=== PATIENT | female | born 1960 | race Caucasian/White ===

== ENCOUNTER → 2018-09-29 09:50 | Outpatient (CLI) | payer OTHER, SELFPAY ==
[2018-09-29 10:23] LABS: Add Manual Diff / Slide Review NO; Basophils Percent Auto 0.7 % (0-2); Eosinophils Percent Auto 4.4 % (2-4); Hematocrit 33.2 % (36-46); Hemoglobin 11.1 g/dL (12.0-16.0); Mean Corpuscular HGB Conc 33.6 % (30-36); Mean Corpuscular Hemoglobin 31.8 PG (26-34); Mean Corpuscular Volume 94.5 fL (80-100); Monocytes Percent Auto 5.4 % (3-14); Neutrophils Absolute Auto 4300 /uL (3000-5900); Neutrophils Percent Auto 77.5 % (50-75); Platelet Count 174 X10^3/uL (150-400); Red Blood Cell Count 3.51 X10^6/uL (4.0-5.2); Red Cell Distribution Width 16.8 % (11.6-14.8); White Blood Cell Count 5.6 X10^3/uL (4.5-11.0)
[2018-09-29 10:37] LABS: Alanine Aminotransferase 27 IU/L (9-52); Albumin 3.7 g/dL (3.5-5.0); Albumin Globulin Ratio 1.7 (1.0-2.8); Alkaline Phosphatase 76 U/L (38-126); Aspartate Aminotransferase 24 IU/L (14-36); BUN Creatinine Ratio 11.4 (6-22); Bilirubin Total 0.2 mg/dL (0.2-1.3); Blood Urea Nitrogen 8 mg/dL (7-17); Calcium 8.5 mg/dL (8.4-10.2); Carbon Dioxide 27 mmol/L (22-32); Chloride 105 mmol/L (98-107); Estimated Glomerular Filt Rate > 60.0 mL/min (>60); Globulin 2.2 g/dL (1.7-4.1); Glucose 76 mg/dL (80-110); HEMOLYSIS < 15 (0-50); Sodium 144 mmol/L (137-145); Total Protein 5.9 g/dL (6.3-8.2)
--- NOTE | 2018-09-29 16:12 | PC.NURSE ---
stable labs noted, provider visit on 10/20
== END ==
PROVIDERS: PCP Family Medicine; Visit Provider Internal Medicine Hematology & Oncology
DX: C92.10 Chronic myeloid leukemia, BCR/ABL-positive, not having achieved remission (principal)
CPT/HCPCS: 36415; 80053; 81206; 85025

== ENCOUNTER → 2018-11-04 12:50 | Outpatient (CLI) | payer OTHER, SELFPAY ==
[2018-11-04 13:29] LABS: Add Manual Diff / Slide Review NO; Basophils Percent Auto 0.8 % (0-2); Eosinophils Percent Auto 2.5 % (2-4); Hematocrit 32.4 % (36-46); Hemoglobin 10.8 g/dL (12.0-16.0); Lymphocytes Percent Auto 15.6 % (25-40); Mean Corpuscular HGB Conc 33.2 % (30-36); Mean Corpuscular Hemoglobin 31.9 PG (26-34); Mean Corpuscular Volume 96.1 fL (80-100); Neutrophils Absolute Auto 4200 /uL (1500-7000); Neutrophils Percent Auto 75.1 % (50-75); Platelet Count 183 X10^3/uL (150-400); Red Blood Cell Count 3.37 X10^6/uL (4.0-5.2); Red Cell Distribution Width 15.3 % (11.6-14.8); White Blood Cell Count 5.6 X10^3/uL (4.5-11.0)
[2018-11-04 13:41] LABS: Alanine Aminotransferase 28 IU/L (9-52); Albumin 3.9 g/dL (3.5-5.0); Albumin Globulin Ratio 1.7 (1.0-2.8); Alkaline Phosphatase 80 U/L (38-126); Aspartate Aminotransferase 27 IU/L (14-36); BUN Creatinine Ratio 14.3 (6-22); Bilirubin Total 0.2 mg/dL (0.2-1.3); Blood Urea Nitrogen 10 mg/dL (7-17); Calcium 8.6 mg/dL (8.4-10.2); Carbon Dioxide 28 mmol/L (22-32); Chloride 105 mmol/L (98-107); Estimated Glomerular Filt Rate > 60.0 mL/min (>60); Globulin 2.3 g/dL (1.7-4.1); Glucose 103 mg/dL (80-110); HEMOLYSIS < 15 (0-50); Potassium 3.9 mmol/L (3.4-5.1); Sodium 141 mmol/L (137-145); Total Protein 6.2 g/dL (6.3-8.2)
--- NOTE | 2018-11-30 09:45 | PC.NURSE ---
Received call from pt on 11/28 requesting refill on her Imatinib. This refill auth was obtained on 11/30. Tried calling this refill auth into [facility] at [phone]. Was informed it wasn't a refill auth they needed (as pt still has 4 months left of refills on last script), but that a prior auth was needed as the previous auth had . Called prior auth department at [phone] and asset protection representative informed me a prior auth request was submitted on 11/29 and takes anywhere from 24-72 hours. Called pt to let her know where we were at in the process. Left voice message with the above info.
== END ==
PROVIDERS: PCP Family Medicine; Visit Provider Internal Medicine Hematology & Oncology
DX: C92.10 Chronic myeloid leukemia, BCR/ABL-positive, not having achieved remission (principal)
CPT/HCPCS: 36415; 80053; 81206; 85025

== ENCOUNTER → 2019-01-09 15:04 | Outpatient (CLI) | payer OTHER, SELFPAY ==
[2019-01-09 15:28] LABS: Add Manual Diff / Slide Review NO; Basophils Absolute Auto 0 /uL (0-100); Basophils Percent Auto 0.7 % (0-2); Eosinophils Absolute Auto 300 /uL (0-450); Hematocrit 33.5 % (36-46); Hemoglobin 11.3 g/dL (12.0-16.0); Lymphocytes Absolute Auto 800 /uL (1100-4500); Lymphocytes Percent Auto 11.7 % (25-40); Mean Corpuscular HGB Conc 33.6 % (30-36); Mean Corpuscular Volume 95.3 fL (80-100); Monocytes Absolute Auto 400 /uL (0-900); Monocytes Percent Auto 6.2 % (3-14); Neutrophils Absolute Auto 5200 /uL (1500-7000); Neutrophils Percent Auto 77.4 % (50-75); Platelet Count 172 X10^3/uL (150-400); Red Blood Cell Count 3.52 X10^6/uL (4.0-5.2); Red Cell Distribution Width 14.9 % (11.6-14.8); White Blood Cell Count 6.7 X10^3/uL (4.5-11.0)
[2019-01-09 15:47] LABS: Alanine Aminotransferase 29 IU/L (9-52); Albumin 4.3 g/dL (3.5-5.0); Albumin Globulin Ratio 1.9 (1.0-2.8); Alkaline Phosphatase 93 U/L (38-126); Aspartate Aminotransferase 30 IU/L (14-36); Bilirubin Total 0.2 mg/dL (0.2-1.3); Blood Urea Nitrogen 16 mg/dL (7-17); Carbon Dioxide 29 mmol/L (22-32); Chloride 103 mmol/L (98-107); Estimated Glomerular Filt Rate > 60.0 mL/min (>60); Globulin 2.3 g/dL (1.7-4.1); Glucose 91 mg/dL (80-110); HEMOLYSIS < 15 (0-50); Potassium 4.5 mmol/L (3.4-5.1); Sodium 140 mmol/L (137-145); Total Protein 6.6 g/dL (6.3-8.2)
== END ==
PROVIDERS: PCP Family Medicine; Visit Provider Internal Medicine Hematology & Oncology
DX: C92.10 Chronic myeloid leukemia, BCR/ABL-positive, not having achieved remission (principal)
CPT/HCPCS: 36415; 80053; 85025; 93005

== ENCOUNTER → 2019-02-09 16:13 | Outpatient (CLI) | payer OTHER, SELFPAY | PROVIDERS: Family Provider Family Medicine; PCP Family Medicine; Visit Provider Internal Medicine Hematology & Oncology | DX: C92.10 Chronic myeloid leukemia, BCR/ABL-positive, not having achieved remission (principal) | CPT/HCPCS: 93005; 93010 ==

== ENCOUNTER → 2019-04-03 13:37 | Outpatient (CLI) | payer OTHER, SELFPAY ==
[2019-04-03 14:01] LABS: Add Manual Diff / Slide Review NO; Basophils Absolute Auto 100 /uL (0-100); Basophils Percent Auto 1.3 % (0-2); Eosinophils Absolute Auto 600 /uL (0-450); Eosinophils Percent Auto 11.1 % (2-4); Hematocrit 33.4 % (36-46); Hemoglobin 11.2 g/dL (12.0-16.0); Lymphocytes Absolute Auto 1300 /uL (1100-4500); Lymphocytes Percent Auto 22.6 % (25-40); Mean Corpuscular HGB Conc 33.6 % (30-36); Mean Corpuscular Hemoglobin 30.6 PG (26-34); Mean Corpuscular Volume 91.2 fL (80-100); Monocytes Absolute Auto 500 /uL (0-900); Monocytes Percent Auto 8.2 % (3-14); Neutrophils Absolute Auto 3300 /uL (1500-7000); Neutrophils Percent Auto 56.8 % (50-75); Platelet Count 158 X10^3/uL (150-400); Red Blood Cell Count 3.66 X10^6/uL (4.0-5.2); Red Cell Distribution Width 14.6 % (11.6-14.8); White Blood Cell Count 5.8 X10^3/uL (4.5-11.0)
[2019-04-03 14:11] LABS: Alanine Aminotransferase 24 IU/L (9-52); Albumin 4.3 g/dL (3.5-5.0); Albumin Globulin Ratio 1.7 (1.0-2.8); Alkaline Phosphatase 79 U/L (38-126); Aspartate Aminotransferase 32 IU/L (14-36); Bilirubin Total 0.3 mg/dL (0.2-1.3); Blood Urea Nitrogen 14 mg/dL (7-17); Calcium 9.3 mg/dL (8.4-10.2); Carbon Dioxide 30 mmol/L (22-32); Chloride 104 mmol/L (98-107); Estimated Glomerular Filt Rate > 60.0 mL/min (>60); Globulin 2.6 g/dL (1.7-4.1); Glucose 98 mg/dL (80-110); HEMOLYSIS < 15 (0-50); Potassium 4.5 mmol/L (3.4-5.1); Sodium 139 mmol/L (137-145); Total Protein 6.9 g/dL (6.3-8.2)
== END ==
PROVIDERS: PCP Family Medicine; Visit Provider Internal Medicine Hematology & Oncology
DX: C92.10 Chronic myeloid leukemia, BCR/ABL-positive, not having achieved remission (principal)
CPT/HCPCS: 36415; 80053; 81207; 85025

== ENCOUNTER → 2019-04-24 14:20 | Oncology outpatient (ONC) | payer OTHER, SELFPAY ==
--- NOTE | 2018-08-15 15:15 | ONC.NAV ---
Description: New Pt Intro Activity: Met with pt to introduce myself as the Pt Primo/NURSES SUPERINTENDENT, offer services card, and develop initial rapport. Pt indicated a (3) on her distress form, expressing sadness, depression, and interested in support group information. Discussed briefly what available support we have here, as well as the [facility] Support group. Discussed a plan for this NURSES SUPERINTENDENT to complile a list of disease-related online support group and resource information. Will either send this to patient or give to her at her next visit. No further needs identified at this tiime.
--- NOTE | 2018-08-15 15:19 | P.CONONC_ITS ---
History of Present Illness - Data of Consult Consult date: 08/15/18 Requesting Physician: Val Martinez DO Primary Care Provider: Val Martinez DO - Consult Narrative Reason for consult: CML Narrative: Nena Bloom is a 58 year old female with CML. She has been followed by Dr. Katie Mejia at [facility]. Patient recently decided to move her care to [facility] due to transportation convenience. She presented with asymptomatic leukocytosis detected on routine CBC. Bone marrow aspiration and biopsy on 12/22/2017 showed chronic myeloid leukemia, BCR-ABL1 positive; chronic phase. No increase in blasts. Reticulin stain shows patchy mild reticulin fibrosis. She was then started on Gleevec 400 mg once a day. In the beginning, patient developed tumor lysis syndrome and had to use rasburicase. After about 6 months of treatment with Gleevec 400 mg once a day, the dosage was increased to 800 mg once a day. According to patient, the test at that time showed that the patient did not achieve the milestone. Patient reported that she feels a little bit more tired and sleeps more than used to. Patient reports some headache which she attributed to her chronic migraine. Patient has some muscle aches and dry eyes and dry skin. Patient noticed some non-itching rash on the face but today it is barely visible. The patient has a okay appetite. Patient has had weight gain of 15 lbs after start on Gleevec, but now after the dosage increase, the weight begins to drop. She denies any shortness of breath or chest pain, denies any nausea or vomiting. She said she did have nausea in the beginning when she was started on Gleevec; now it has resolved. She denies any fever or chills. She denies any sore throat. Patient reported right-sided submandibular tenderness. Patient reports pain?: Yes - Pain Details Pain location: Headache, has history of migraine Pain Scale Used: mild Pain Frequency: Intermittent Home Medications and Allergies Home Medications Medication Instructions Recorded Confirmed Type cromolyn 1 - 2 drp EYE-BOTH TID 08/15/18 08/15/18 History duloxetine 60 mg PO DAILY 08/15/18 08/15/18 History fluticasone 2 inh INHALATION BID 08/15/18 08/15/18 History glucosamine sulfate [Glucosamine] 500 mg PO TID 08/15/18 08/15/18 History imatinib [Gleevec] 400 mg PO DAILY 08/15/18 08/15/18 History levothyroxine 75 mcg PO DAILY 08/15/18 08/15/18 History loratadine 10 mg PO DAILY 08/15/18 08/15/18 History melatonin 3 mg PO BEDTIME PRN 08/15/18 08/15/18 History naproxen sodium [Aleve] 220 mg PO BID PRN 08/15/18 08/15/18 History ramipril [Altace] 10 mg PO DAILY 08/15/18 08/15/18 History zolmitriptan [Zomig] 5 mg PO Q2-4H PRN 08/15/18 08/15/18 History Allergies Allergy/AdvReac Type Severity Reaction Status Date / Time allopurinol Allergy Intermediate Hives Verified 08/15/18 15:31 acetaminophen [From Vicodin] Allergy Mild Hives Verified 08/15/18 15:31 codeine Allergy Mild Hives Verified 08/15/18 15:31 doxycycline Allergy Mild Hives Verified 08/15/18 15:31 hydrocodone [From Vicodin] Allergy Mild Hives Verified 08/15/18 15:31 Medical History - Medical, Surgical, Family History Medical History: Medical History (Last Updated 08/15/18 @ 15:24 by Alma Ruff MD) Hypertension Hypothyroidism Migraine Surgical History: Surgical History (Last Updated 08/15/18 @ 15:21 by Alma Ruff MD) History of augmentation of both breasts History of tonsillectomy Family History: Family History (Last Updated 08/15/18 @ 15:23 by Alma Ruff MD) Sister Bone cancer, Onset Age: 47 Mother Goiter - Social History Smoking Status: Never smoker Substance Use Type: does not use Alcohol Intake: never Housing: house Household Members: spouse Current Occupational Status: retired Review of Systems All systems PM: reviewed and no additional remarkable complaints except as stated Exam Vital signs: Temperature 98.3?, heart rate 84, respiratory rate 18, blood pressure 141/85, saturation 100% on room air, weight 87.4 kilos, height 167.8 cm. ECOG 1 Narrative: Constitutional: Well developed, well nourished, not in any acute respiratory distress, average body habitus, well groomed, pleasant and cooperative. Accompanied by her [id number]. HEENT: Normocephalic atraumatic. Extraocular muscle movement intact. Pupils are round, equal and reactive to light and accommodations. Anicteric sclera. No hearing difficulty; Oral mucus membrane moist and without ulcers. Neck: Supple, symmetrical, and tracheal midline; No palpable thyromegaly and no palpable lymph nodes. Respiratory: No use of accessory muscles. Clear to auscultation, and no wheezes or rales or rubs. Cardiovascular: Regular rate and rhythm, S1 and S2 normal, no murmurs gallops or rubs. No JVD. No pitting edema of lower extremities. Abdomen: Soft, nontender, non-distended, bowel sounds normal, no palpable organomegaly, no hernia, no palpable masses. Lower extremities: No palpable pedal edema. Lymphatic: no palpable lymph nodes in the neck, axillae, or groins. Musculoskeletal: normal gait and station, no clubbing, no cyanosis, no pitting edema. Skin: no rashes, no ulcers, no petechiae Neurological: Awake and alert and oriented x3. CN II-XII grossly intact. No focal motor or sensory deficit. Psychiatric: Good judgment, good insight, normal affect, normal thought process , cooperative, no depression, no anxiety. Results - Labs None from today for review Assessment and Plan (1) CML (chronic myelocytic leukemia) I talked with the patient that clinically I think she has been doing well with the increased dosage of Gleevec 800 mg once daily. And the 1st step is to repeat the peripheral blood quantitative PCR test for BCR ABL1 transcript level. Based on the results we will decide if we can continue the treatment without any changes, or we switch to second-generation tyrosine kinase inhibitors or we need to proceed with more testing including tyrosine kinase domain mutational analysis. - Time Spent with Patient Plan in Sumary: 1. WBC/D, CMP, uric acid, LDH 2. BCR/ABL1 qPCR (IS) at [facility] 3. RTC MD in one week to discuss if mutation analysis is needed and if need switch TKI
--- NOTE | 2018-08-15 15:55 | ONC.SCHED ---
BCR/CX1QRJQ(IS)CPTS 86037,39371 DO NOT REQUIRE PRECERTIFICATION PER [employer] ONLINE
[2018-08-15 16:46] VITALS: BP 141/85; PULSE 84; RESP 18; TEMP 36.8; O2SAT 100
[2018-08-16 11:48] LABS: Add Manual Diff / Slide Review NO; Basophils Percent Auto 0.7 % (0-2); Eosinophils Percent Auto 6.9 % (2-4); Hematocrit 34.2 % (36-46); Hemoglobin 11.4 g/dL (12.0-16.0); Mean Corpuscular HGB Conc 33.3 % (30-36); Mean Corpuscular Hemoglobin 30.7 PG (26-34); Mean Corpuscular Volume 92.2 fL (80-100); Monocytes Percent Auto 7.4 % (3-14); Neutrophils Absolute Auto 3800 /uL (3000-5900); Platelet Count 177 X10^3/uL (150-400); Red Blood Cell Count 3.71 X10^6/uL (4.0-5.2); Red Cell Distribution Width 18.4 % (11.6-14.8); White Blood Cell Count 5.4 X10^3/uL (4.5-11.0)
[2018-08-16 16:52] LABS: Alanine Aminotransferase 30 IU/L (9-52); Albumin Globulin Ratio 1.7 (1.0-2.8); Alkaline Phosphatase 94 U/L (38-126); Aspartate Aminotransferase 32 IU/L (14-36); BUN Creatinine Ratio 12.5 (6-22); Bilirubin Total 0.3 mg/dL (0.2-1.3); Blood Urea Nitrogen 10 mg/dL (7-17); Calcium 8.8 mg/dL (8.4-10.2); Carbon Dioxide 31 mmol/L (22-32); Chloride 105 mmol/L (98-107); Estimated Glomerular Filt Rate > 60.0 mL/min (>60); Globulin 2.3 g/dL (1.7-4.1); Glucose 85 mg/dL (80-110); HEMOLYSIS < 15 (0-50); Lactate Dehydrogenase 542 U/L (313-618); Sodium 144 mmol/L (137-145); Total Protein 6.3 g/dL (6.3-8.2); Uric Acid 3.7 mg/dL (2.5-6.2)
[2018-08-19 08:19] LABS: Miscellaneous to Univ of WA SEE SEPERATE REPORT
--- NOTE | 2018-08-22 16:58 | ONC.PN ---
PN -Subjective Interval history: Chief Complaint: 58 year old with CML now on Geevec 800 mg daily History of Present Illness: Nena Bloom is a 58 year old female with CML. She presented with asymptomatic leukocytosis detected on routine CBC. Bone marrow aspiration and biopsy on 12/22/2017 showed chronic myeloid leukemia, BCR-ABL1 positive; chronic phase. No increase in blasts. Reticulin stain shows patchy mild reticulin fibrosis. She was then started on Gleevec 400 mg once a day. In the beginning, patient developed tumor lysis syndrome and had to use rasburicase. After about 6 months of treatment with Gleevec 400 mg once a day, BCR/ABL1 transcript level was 21.446% (IS) on 06/15/2018. Therefore, the dosage of Gleevac was increased to 800 mg once a day. She was initially followed by Dr. Mejia. Due to travel convenience, she decided to come to [facility] for continued care. Interim Events: Since her previous visit, there has been no new signs or symptoms. Patient continues to have some fatigue. She is taking Gleevec 800 mg once a day and seems to be tolerating fairly well. She presents today for review of the testing results of bcr/able 1 transcript level. - Patient Self-Reported Symptoms SR Constitution: Fatigue/Malaise SR ears, nose, mouth, throat issues: Swollen glands SR Cardiovascular issues: Dizzy/lightheaded SR Skin issues: Dry skin SR Musculoskeletal issues: Muscle pain or cramps, Back or neck pain SR Neuro issues: Headache, Lightheaded/dizzy SR Hematologic issues: Bleeding/bruising, Swollen lymph nodes - Additional ROS All systems PM: reviewed and no additional remarkable complaints except as stated Home Medications and Allergies Home Medications Medication Instructions Recorded Confirmed Type duloxetine 60 mg PO DAILY 08/15/18 08/15/18 History fluticasone 2 inh INHALATION DAILY 08/15/18 08/22/18 History glucosamine sulfate [Glucosamine] 500 mg PO TID 08/15/18 08/15/18 History levothyroxine 75 mcg PO DAILY 08/15/18 08/15/18 History loratadine 10 mg PO DAILY 08/15/18 08/15/18 History naproxen sodium [Aleve] 220 mg PO BID PRN 08/15/18 08/15/18 History ramipril [Altace] 10 mg PO DAILY 08/15/18 08/15/18 History zolmitriptan [Zomig] 5 mg PO PRN 08/15/18 History imatinib 800 mg PO DAILY 08/22/18 08/22/18 History melatonin 5 mg PO PRN PRN 08/22/18 08/22/18 History Allergies Allergy/AdvReac Type Severity Reaction Status Date / Time allopurinol Allergy Intermediate Hives Verified 08/15/18 15:31 acetaminophen [From Vicodin] Allergy Mild Hives Verified 08/15/18 15:31 codeine Allergy Mild Hives Verified 08/15/18 15:31 doxycycline Allergy Mild Hives Verified 08/15/18 15:31 hydrocodone [From Vicodin] Allergy Mild Hives Verified 08/15/18 15:31 Exam Vital signs: Temp 98.3 F 08/15/18 16:46 Pulse 84 08/15/18 16:46 Resp 18 08/15/18 16:46 BP 141/85 H 08/15/18 16:46 Pulse Ox 100 08/15/18 16:46 ECOG 1 Narrative: Constitutional: Well developed, well nourished, not in any acute respiratory distress, average body habitus, well groomed, pleasant and cooperative. Accompanied by her . HEENT: Normocephalic atraumatic. Extraocular muscle movement intact. Pupils are round, equal and reactive to light and accommodations. Anicteric sclera. No hearing difficulty; Oral mucus membrane moist and without ulcers. Neck: Supple, symmetrical, and tracheal midline; No palpable thyromegaly and no palpable lymph nodes. Respiratory: No use of accessory muscles. Clear to auscultation, and no wheezes or rales or rubs. Cardiovascular: Regular rate and rhythm, S1 and S2 normal, no murmurs gallops or rubs. No JVD. No pitting edema of lower extremities. Abdomen: Soft, nontender, non-distended, bowel sounds normal, no palpable organomegaly, no hernia, no palpable masses. Lower extremities: No palpable pedal edema. Lymphatic: no palpable lymph nodes in the neck, axillae, or groins. Musculoskeletal: normal gait and station, no clubbing, no cyanosis, no pitting edema. Skin: no rashes, no ulcers, no petechiae Neurological: Awake and alert and oriented x3. CN II-XII grossly intact. No focal motor or sensory deficit. Psychiatric: Good judgment, good insight, normal affect, normal thought process, cooperative, no depression, no anxiety Results - Labs WBC 5.4 X10^3/uL (4.5-11.0) 08/16/18 11:20 RBC 3.71 X10^6/uL (4.0-5.2) L 08/16/18 11:20 Hgb 11.4 g/dL (12.0-16.0) L 08/16/18 11:20 Hct 34.2 % (36-46) L 08/16/18 11:20 MCV 92.2 fL (80-100) 08/16/18 11:20 MCH 30.7 PG (26-34) 08/16/18 11:20 MCHC 33.3 % (30-36) 08/16/18 11:20 RDW 18.4 % (11.6-14.8) H 08/16/18 11:20 Plt Count 177 X10^3/uL (150-400) 08/16/18 11:20 Neut % (Auto) 70.0 % (50-75) 08/16/18 11:20 Lymph % (Auto) 15.0 % (25-40) L 08/16/18 11:20 [place] % (Auto) 7.4 % (3-14) 08/16/18 11:20 Eos % (Auto) 6.9 % (2-4) H 08/16/18 11:20 Baso % (Auto) 0.7 % (0-2) 08/16/18 11:20 Neut # (Auto) 3800 /uL (3391-8587) 08/16/18 11:20 Sodium 144 mmol/L (137-145) 08/16/18 11:20 Potassium 4.0 mmol/L (3.4-5.1) 08/16/18 11:20 Chloride 105 mmol/L (98-107) 08/16/18 11:20 Carbon Dioxide 31 mmol/L (22-32) 08/16/18 11:20 BUN 10 mg/dL (7-17) 08/16/18 11:20 Creatinine 0.80 mg/dL (0.52-1.04) 08/16/18 11:20 Estimated GFR > 60.0 mL/min (>60) 08/16/18 11:20 BUN/Creatinine Ratio 12.5 (6-22) 08/16/18 11:20 Glucose 85 mg/dL (80-110) 08/16/18 11:20 Uric Acid 3.7 mg/dL (2.5-6.2) 08/16/18 11:20 Calcium 8.8 mg/dL (8.4-10.2) 08/16/18 11:20 Total Bilirubin 0.3 mg/dL (0.2-1.3) 08/16/18 11:20 AST 32 IU/L (14-36) 08/16/18 11:20 ALT 30 IU/L (9-52) 08/16/18 11:20 Alkaline Phosphatase 94 U/L (38-126) 08/16/18 11:20 Lactate Dehydrogenase 542 U/L (313-618) 08/16/18 11:20 Total Protein 6.3 g/dL (6.3-8.2) 08/16/18 11:20 Albumin 4.0 g/dL (3.5-5.0) 08/16/18 11:20 Globulin 2.3 g/dL (1.7-4.1) 08/16/18 11:20 Albumin/Globulin Ratio 1.7 (1.0-2.8) 08/16/18 11:20 Ref Test (Refrig) See seperate report 08/16/18 11:20 08/16/2018 ([facility] [place]): Positive fro BCR/ABL p210 transcripts. The BCR/ABL to ABL ratio(%) is 2.10% Assessment and Plan (1) CML (chronic myelocytic leukemia) I explained to the patient about the results. Clearly it is not converted into international scale. Therefore it is very difficult to compare with her transcript level from June of 2018. I talked with the patient that I will send off a new sample to test for BCR able quantitatively at the same lab, that is, [facility]. I will have the patient come back in 1 week to review the results. If it is not reaching milestone, patient will need kinase domain mutational analysis and I will change the medication to dasatinib or nilotinib.
--- NOTE | 2018-09-02 12:52 | ONC.PN ---
PN -Subjective Interval history: Chief Complaint: 58 year old with CML now on Geevec 800 mg daily History of Present Illness: Nena Bloom is a 58 year old female with CML. She presented with asymptomatic leukocytosis detected on routine CBC in Nov 2017 with WBC 65590. Peripheral blood BCR-ABL1 by PCR showed transcript level of 100%. Bone marrow aspiration and biopsy on 12/22/2017 showed chronic myeloid leukemia, BCR-ABL1 positive; chronic phase. No increase in blasts. Reticulin stain shows patchy mild reticulin fibrosis. US showed no hepatosplenomegaly. Hepatitis panel was negative for hepatitis B and C. On Dec 30, 2017, she was then started on Gleevec 400 mg once a day. In the beginning, patient developed tumor lysis syndrome and had to use rasburicase. After about 6 months of treatment with Gleevec 400 mg once a day, BCR-ABL1 transcript level was 21.446% (IS) on 06/15/2018. Therefore, the dosage of Gleevec was increased to 800 mg once a day. She was initially followed by Dr. Mejia. Due to travel convenience, she decided to come to [email or web address] for continued care. Interim Events: She is not taking Gleevec at 800 mg once a day. Patient has tolerated the medications very well. Patient does not have any signs or symptoms of nausea or vomiting or diarrhea or constipation. Patient presents here today to review the laboratory monitoring the results of the BCR-ABL1. - Patient Self-Reported Symptoms SR Constitution: Fatigue/Malaise SR ears, nose, mouth, throat issues: Swollen glands SR Cardiovascular issues: Dizzy/lightheaded SR Skin issues: Dry skin SR Musculoskeletal issues: Muscle pain or cramps, Back or neck pain SR Neuro issues: Headache, Lightheaded/dizzy SR Hematologic issues: Bleeding/bruising, Swollen lymph nodes - Additional ROS All systems PM: reviewed and no additional remarkable complaints except as stated Home Medications and Allergies Home Medications Medication Instructions Recorded Confirmed Type duloxetine 60 mg PO DAILY 08/15/18 09/02/18 History fluticasone 2 inh INHALATION DAILY 08/15/18 09/02/18 History glucosamine sulfate [Glucosamine] 500 mg PO TID 08/15/18 09/02/18 History levothyroxine 75 mcg PO DAILY 08/15/18 09/02/18 History loratadine 10 mg PO DAILY 08/15/18 09/02/18 History naproxen sodium [Aleve] 220 mg PO BID PRN 08/15/18 09/02/18 History ramipril [Altace] 10 mg PO DAILY 08/15/18 09/02/18 History zolmitriptan 5 mg PO PRN PRN 08/15/18 09/02/18 History imatinib 800 mg PO DAILY 08/22/18 09/02/18 History melatonin 5 mg PO PRN PRN 08/22/18 09/02/18 History Allergies Allergy/AdvReac Type Severity Reaction Status Date / Time allopurinol Allergy Intermediate Hives Verified 08/15/18 15:31 acetaminophen [From Vicodin] Allergy Mild Hives Verified 08/15/18 15:31 codeine Allergy Mild Hives Verified 08/15/18 15:31 doxycycline Allergy Mild Hives Verified 08/15/18 15:31 hydrocodone [From Vicodin] Allergy Mild Hives Verified 08/15/18 15:31 Exam Vital signs: Last Vital Signs Temp 98.1 F 09/02/18 13:04 Pulse 81 09/02/18 13:04 Resp 16 09/02/18 13:04 BP 121/72 09/02/18 13:04 Pulse Ox 100 09/02/18 13:04 ECOG 1 Narrative: Constitutional: Well developed, well nourished, not in any acute respiratory distress, average body habitus, well groomed, pleasant and cooperative. Accompanied by her . HEENT: Normocephalic atraumatic. Extraocular muscle movement intact. Pupils are round, equal and reactive to light and accommodations. Anicteric sclera. No hearing difficulty; Oral mucus membrane moist and without ulcers. Neck: Supple, symmetrical, and tracheal midline; No palpable thyromegaly and no palpable lymph nodes. Respiratory: No use of accessory muscles. Clear to auscultation, and no wheezes or rales or rubs. Cardiovascular: Regular rate and rhythm, S1 and S2 normal, no murmurs gallops or rubs. No JVD. No pitting edema of lower extremities. Abdomen: Soft, nontender, non-distended, bowel sounds normal, no palpable organomegaly, no hernia, no palpable masses. Lower extremities: No palpable pedal edema. Lymphatic: no palpable lymph nodes in the neck, axillae, or groins. Musculoskeletal: normal gait and station, no clubbing, no cyanosis, no pitting edema. Skin: no rashes, no ulcers, no petechiae Neurological: Awake and alert and oriented x3. CN II-XII grossly intact. No focal motor or sensory deficit. Psychiatric: Good judgment, good insight, normal affect, normal thought process, cooperative, no depression, no anxiety Results - Labs WBC 5.4 X10^3/uL (4.5-11.0) 08/16/18 11:20 RBC 3.71 X10^6/uL (4.0-5.2) L 08/16/18 11:20 Hgb 11.4 g/dL (12.0-16.0) L 08/16/18 11:20 Hct 34.2 % (36-46) L 08/16/18 11:20 MCV 92.2 fL (80-100) 08/16/18 11:20 MCH 30.7 PG (26-34) 08/16/18 11:20 MCHC 33.3 % (30-36) 08/16/18 11:20 RDW 18.4 % (11.6-14.8) H 08/16/18 11:20 Plt Count 177 X10^3/uL (150-400) 08/16/18 11:20 Neut % (Auto) 70.0 % (50-75) 08/16/18 11:20 Lymph % (Auto) 15.0 % (25-40) L 08/16/18 11:20 [place] % (Auto) 7.4 % (3-14) 08/16/18 11:20 Eos % (Auto) 6.9 % (2-4) H 08/16/18 11:20 Baso % (Auto) 0.7 % (0-2) 08/16/18 11:20 Neut # (Auto) 3800 /uL (6963-7477) 08/16/18 11:20 Sodium 144 mmol/L (137-145) 08/16/18 11:20 Potassium 4.0 mmol/L (3.4-5.1) 08/16/18 11:20 Chloride 105 mmol/L (98-107) 08/16/18 11:20 Carbon Dioxide 31 mmol/L (22-32) 08/16/18 11:20 BUN 10 mg/dL (7-17) 08/16/18 11:20 Creatinine 0.80 mg/dL (0.52-1.04) 08/16/18 11:20 Estimated GFR > 60.0 mL/min (>60) 08/16/18 11:20 BUN/Creatinine Ratio 12.5 (6-22) 08/16/18 11:20 Glucose 85 mg/dL (80-110) 08/16/18 11:20 Uric Acid 3.7 mg/dL (2.5-6.2) 08/16/18 11:20 Calcium 8.8 mg/dL (8.4-10.2) 08/16/18 11:20 Total Bilirubin 0.3 mg/dL (0.2-1.3) 08/16/18 11:20 AST 32 IU/L (14-36) 08/16/18 11:20 ALT 30 IU/L (9-52) 08/16/18 11:20 Alkaline Phosphatase 94 U/L (38-126) 08/16/18 11:20 Lactate Dehydrogenase 542 U/L (313-618) 08/16/18 11:20 Total Protein 6.3 g/dL (6.3-8.2) 08/16/18 11:20 Albumin 4.0 g/dL (3.5-5.0) 08/16/18 11:20 Globulin 2.3 g/dL (1.7-4.1) 08/16/18 11:20 Albumin/Globulin Ratio 1.7 (1.0-2.8) 08/16/18 11:20 Ref Test (Refrig) 08/23/18 15:22 BCR-ABL1/abl1, %(IS) 11/17/2017 100 06/15/2018 21.446 08/23/2018 0.91 Assessment and Plan (1) CML (chronic myelocytic leukemia) I reviewed the BCR-ABL1 transcript level obtained on August 23, 2018. It was 0.91% international scale. Patient said that she was started on Gleevec in December of 2017. At 6 months, due to persistent elevated BCR-Abl1 transcript level, the dosage of Gleevec was increased to 800 mg once a day. Clinically patient has tolerated extremely well. I talked with her that I will monitor her BCR-ABL1 transcript level monthly instead of every 3 months. If the transcript level is increasing or does not reach major molecular response by 12 months ( less than 0.1%), I will switch the medication to second-generation tyrosine kinase inhibitor with mutational analysis. Plan: 1. Continue Gleevec 800 mg daily 2. CBC, CMP and BCR-ABL1/ABL1 qPCR ([facility]) in one month 3. RTC after the blood test is available for review.
--- NOTE | 2018-09-02 12:57 | P.PNONC_ITS ---
PN -Subjective Interval history: Chief Complaint: 58 year old with CML now on Geevec 800 mg daily History of Present Illness: Nena Bloom is a 58 year old female with CML. She presented with asymptomatic leukocytosis detected on routine CBC in Nov 2017 with WBC 63972. Peripheral blood BCR-ABL1 by PCR showed transcript level of 100%. Bone marrow aspiration and biopsy on 12/22/2017 showed chronic myeloid leukemia, BCR-ABL1 positive; chronic phase. No increase in blasts. Reticulin stain shows patchy mild reticulin fibrosis. US showed no hepatosplenomegaly. Hepatitis panel was negative for hepatitis B and C. On Dec 30, 2017, she was then started on Gleevec 400 mg once a day. In the beginning, patient developed tumor lysis syndrome and had to use rasburicase. After about 6 months of treatment with Gleevec 400 mg once a day, BCR-ABL1 transcript level was 21.446% (IS) on 06/15/2018. Therefore , the dosage of Gleevec was increased to 800 mg once a day. She was initially followed by Dr. Mejia. Due to travel convenience, she decided to come to [facility] for continued care. Interim Events: She is not taking Gleevec at 800 mg once a day. Patient has tolerated the medications very well. Patient does not have any signs or symptoms of nausea or vomiting or diarrhea or constipation. Patient presents here today to review the laboratory monitoring the results of the BCR-ABL1. - Patient Self-Reported Symptoms SR Constitution: Fatigue/Malaise SR ears, nose, mouth, throat issues: Swollen glands SR Cardiovascular issues: Dizzy/lightheaded SR Skin issues: Dry skin SR Musculoskeletal issues: Muscle pain or cramps, Back or neck pain SR Neuro issues: Headache, Lightheaded/dizzy SR Hematologic issues: Bleeding/bruising, Swollen lymph nodes - Additional ROS All systems PM: reviewed and no additional remarkable complaints except as stated Home Medications and Allergies Home Medications Medication Instructions Recorded Confirmed Type duloxetine 60 mg PO DAILY 08/15/18 09/02/18 History fluticasone 2 inh INHALATION DAILY 08/15/18 09/02/18 History glucosamine sulfate [Glucosamine] 500 mg PO TID 08/15/18 09/02/18 History levothyroxine 75 mcg PO DAILY 08/15/18 09/02/18 History loratadine 10 mg PO DAILY 08/15/18 09/02/18 History naproxen sodium [Aleve] 220 mg PO BID PRN 08/15/18 09/02/18 History ramipril [Altace] 10 mg PO DAILY 08/15/18 09/02/18 History zolmitriptan 5 mg PO PRN PRN 08/15/18 09/02/18 History imatinib 800 mg PO DAILY 08/22/18 09/02/18 History melatonin 5 mg PO PRN PRN 08/22/18 09/02/18 History Allergies Allergy/AdvReac Type Severity Reaction Status Date / Time allopurinol Allergy Intermediate Hives Verified 08/15/18 15:31 acetaminophen [From Vicodin] Allergy Mild Hives Verified 08/15/18 15:31 codeine Allergy Mild Hives Verified 08/15/18 15:31 doxycycline Allergy Mild Hives Verified 08/15/18 15:31 hydrocodone [From Vicodin] Allergy Mild Hives Verified 08/15/18 15:31 Exam Vital signs: Last Vital Signs Temp 98.1 F 09/02/18 13:04 Pulse 81 09/02/18 13:04 Resp 16 09/02/18 13:04 BP 121/72 09/02/18 13:04 Pulse Ox 100 09/02/18 13:04 ECOG 1 Narrative: Constitutional: Well developed, well nourished, not in any acute respiratory distress, average body habitus, well groomed, pleasant and cooperative. Accompanied by her . HEENT: Normocephalic atraumatic. Extraocular muscle movement intact. Pupils are round, equal and reactive to light and accommodations. Anicteric sclera. No hearing difficulty; Oral mucus membrane moist and without ulcers. Neck: Supple, symmetrical, and tracheal midline; No palpable thyromegaly and no palpable lymph nodes. Respiratory: No use of accessory muscles. Clear to auscultation, and no wheezes or rales or rubs. Cardiovascular: Regular rate and rhythm, S1 and S2 normal, no murmurs gallops or rubs. No JVD. No pitting edema of lower extremities. Abdomen: Soft, nontender, non-distended, bowel sounds normal, no palpable organomegaly, no hernia, no palpable masses. Lower extremities: No palpable pedal edema. Lymphatic: no palpable lymph nodes in the neck, axillae, or groins. Musculoskeletal: normal gait and station, no clubbing, no cyanosis, no pitting edema. Skin: no rashes, no ulcers, no petechiae Neurological: Awake and alert and oriented x3. CN II-XII grossly intact. No focal motor or sensory deficit. Psychiatric: Good judgment, good insight, normal affect, normal thought process , cooperative, no depression, no anxiety Results - Labs 3 WBC 5.4 X10^3/uL (4.5-11.0) 08/16/18 11:20 RBC 3.71 X10^6/uL (4.0-5.2) L 08/16/18 11:20 Hgb 11.4 g/dL (12.0-16.0) L 08/16/18 11:20 Hct 34.2 % (36-46) L 08/16/18 11:20 MCV 92.2 fL (80-100) 08/16/18 11:20 MCH 30.7 PG (26-34) 08/16/18 11:20 MCHC 33.3 % (30-36) 08/16/18 11:20 RDW 18.4 % (11.6-14.8) H 08/16/18 11:20 Plt Count 177 X10^3/uL (150-400) 08/16/18 11:20 Neut % (Auto) 70.0 % (50-75) 08/16/18 11:20 Lymph % (Auto) 15.0 % (25-40) L 08/16/18 11:20 [place] % (Auto) 7.4 % (3-14) 08/16/18 11:20 Eos % (Auto) 6.9 % (2-4) H 08/16/18 11:20 Baso % (Auto) 0.7 % (0-2) 08/16/18 11:20 Neut # (Auto) 3800 /uL (6220-5636) 08/16/18 11:20 Sodium 144 mmol/L (137-145) 08/16/18 11:20 Potassium 4.0 mmol/L (3.4-5.1) 08/16/18 11:20 Chloride 105 mmol/L (98-107) 08/16/18 11:20 Carbon Dioxide 31 mmol/L (22-32) 08/16/18 11:20 BUN 10 mg/dL (7-17) 08/16/18 11:20 Creatinine 0.80 mg/dL (0.52-1.04) 08/16/18 11:20 Estimated GFR > 60.0 mL/min (>60) 08/16/18 11:20 BUN/Creatinine Ratio 12.5 (6-22) 08/16/18 11:20 Glucose 85 mg/dL (80-110) 08/16/18 11:20 Uric Acid 3.7 mg/dL (2.5-6.2) 08/16/18 11:20 Calcium 8.8 mg/dL (8.4-10.2) 08/16/18 11:20 Total Bilirubin 0.3 mg/dL (0.2-1.3) 08/16/18 11:20 AST 32 IU/L (14-36) 08/16/18 11:20 ALT 30 IU/L (9-52) 08/16/18 11:20 Alkaline Phosphatase 94 U/L (38-126) 08/16/18 11:20 Lactate Dehydrogenase 542 U/L (313-618) 08/16/18 11:20 Total Protein 6.3 g/dL (6.3-8.2) 08/16/18 11:20 Albumin 4.0 g/dL (3.5-5.0) 08/16/18 11:20 Globulin 2.3 g/dL (1.7-4.1) 08/16/18 11:20 Albumin/Globulin Ratio 1.7 (1.0-2.8) 08/16/18 11:20 Ref Test (Refrig) 08/23/18 15:22 BCR-ABL1/abl1, %(IS) 11/17/2017 100 06/15/2018 21.446 08/23/2018 0.91 Assessment and Plan (1) CML (chronic myelocytic leukemia) I reviewed the BCR-ABL1 transcript level obtained on August 23, 2018. It was 0.91% international scale. Patient said that she was started on Gleevec in December of 2017. At 6 months, due to persistent elevated BCR-Abl1 transcript level , the dosage of Gleevec was increased to 800 mg once a day. Clinically patient has tolerated extremely well. I talked with her that I will monitor her BCR- ABL1 transcript level monthly instead of every 3 months. If the transcript level is increasing or does not reach major molecular response by 12 months ( less than 0.1%), I will switch the medication to second-generation tyrosine kinase inhibitor with mutational analysis. Plan: 1. Continue Gleevec 800 mg daily 2. CBC, CMP and BCR-ABL1/ABL1 qPCR ([facility]) in one month 3. RTC after the blood test is available for review.
[2018-09-02 13:04] VITALS: BP 121/72; PULSE 81; RESP 16; TEMP 36.7; O2SAT 100
[2018-10-07 13:04] VITALS: BP 126/85; PULSE 78; RESP 18; TEMP 36.4; O2SAT 99
--- NOTE | 2018-10-07 13:23 | ONC.PN ---
PN -Subjective Interval history: 58 year old female with CML CP now on Gleevec since 12/30/2017 here for scheduled follow up. She is now taking Gleevec at 800 mg once a day. Patient has tolerated the medications very well. Patient does not have any signs or symptoms of nausea or vomiting or diarrhea or constipation. Patient presents here today to review the laboratory monitoring the results of the BCR-ABL1. History of Present Illness: Nena Bloom is a 58 year old female with CML. She presented with asymptomatic leukocytosis detected on routine CBC in Nov 2017 with WBC 19247. Peripheral blood BCR-ABL1 by PCR showed transcript level of 100%. Bone marrow aspiration and biopsy on 12/22/2017 showed chronic myeloid leukemia, BCR-ABL1 positive; chronic phase. No increase in blasts. Reticulin stain shows patchy mild reticulin fibrosis. US showed no hepatosplenomegaly. Hepatitis panel was negative for hepatitis B and C. On Dec 30, 2017, she was then started on Gleevec 400 mg once a day. In the beginning, patient developed tumor lysis syndrome and had to use rasburicase. After about 6 months of treatment with Gleevec 400 mg once a day, BCR-ABL1 transcript level was 21.446% (IS) on 06/15/2018. Therefore, the dosage of Gleevec was increased to 800 mg once a day. She was initially followed by Dr. Mejia. Due to travel convenience, she decided to come to [facility] for continued care. - Patient Self-Reported Symptoms SR Constitution: Fatigue/Malaise SR ears, nose, mouth, throat issues: Swollen glands SR Cardiovascular issues: Dizzy/lightheaded SR Skin issues: Dry skin SR Gastrointestinal issues: Diarrhea SR Musculoskeletal issues: Muscle pain or cramps, Back or neck pain SR Neuro issues: Headache, Lightheaded/dizzy SR Hematologic issues: Bleeding/bruising, Swollen lymph nodes - Additional ROS All systems PM: reviewed and no additional remarkable complaints except as stated Home Medications and Allergies Home Medications Medication Instructions Recorded Confirmed Type duloxetine 60 mg PO DAILY 08/15/18 09/02/18 History fluticasone 2 inh INHALATION DAILY 08/15/18 09/02/18 History glucosamine sulfate [Glucosamine] 500 mg PO TID 08/15/18 09/02/18 History levothyroxine 75 mcg PO DAILY 08/15/18 09/02/18 History loratadine 10 mg PO DAILY 08/15/18 09/02/18 History naproxen sodium [Aleve] 220 mg PO BID PRN 08/15/18 09/02/18 History ramipril [Altace] 10 mg PO DAILY 08/15/18 09/02/18 History zolmitriptan 5 mg PO PRN PRN 08/15/18 09/02/18 History melatonin 5 mg PO PRN PRN 08/22/18 09/02/18 History imatinib 800 mg PO DAILY #60 tab 10/07/18 Rx Allergies Allergy/AdvReac Type Severity Reaction Status Date / Time allopurinol Allergy Intermediate Hives Verified 08/15/18 15:31 acetaminophen [From Vicodin] Allergy Mild Hives Verified 08/15/18 15:31 codeine Allergy Mild Hives Verified 08/15/18 15:31 doxycycline Allergy Mild Hives Verified 08/15/18 15:31 hydrocodone [From Vicodin] Allergy Mild Hives Verified 08/15/18 15:31 Exam Vital signs: Last Vital Signs Temp 97.5 F L 10/07/18 13:04 Pulse 78 10/07/18 13:04 Resp 18 10/07/18 13:04 BP 126/85 10/07/18 13:04 Pulse Ox 99 10/07/18 13:04 ECOG 1 Narrative: General: WDWN, NAD, well groomed, pleasant and cooperative. She presents alone today. HEENT: NCAT, EOMI, PERLLA, Anicteric sclera. Oral mucus membrane moist and without ulcers. Neck: Supple, symmetrical, and tracheal midline; No palpable thyromegaly and no palpable lymph nodes. Respiratory: No use of accessory muscles. Clear to auscultation, and no wheezes or rales or rubs. Cardiovascular: Regular rate and rhythm, S1 and S2 normal, no murmurs gallops or rubs. No JVD. No pitting edema of lower extremities. Abdomen: Soft, nontender, non-distended, bowel sounds normal, no palpable organomegaly, no hernia, no palpable masses. Lower extremities: No palpable pedal edema. Lymphatic: no palpable lymph nodes in the neck, axillae, or groins. Musculoskeletal: normal gait and station, no clubbing, no cyanosis, no pitting edema. Skin: no rashes, no ulcers, no petechiae Neurological: Awake and alert and oriented x3. CN II-XII grossly intact. No focal motor or sensory deficit. Psychiatric: Good judgment, good insight, normal affect, normal thought process, cooperative, no depression, no anxiety Results - Labs WBC 5.4 X10^3/uL (4.5-11.0) 08/16/18 11:20 RBC 3.71 X10^6/uL (4.0-5.2) L 08/16/18 11:20 Hgb 11.4 g/dL (12.0-16.0) L 08/16/18 11:20 Hct 34.2 % (36-46) L 08/16/18 11:20 MCV 92.2 fL (80-100) 08/16/18 11:20 MCH 30.7 PG (26-34) 08/16/18 11:20 MCHC 33.3 % (30-36) 08/16/18 11:20 RDW 18.4 % (11.6-14.8) H 08/16/18 11:20 Plt Count 177 X10^3/uL (150-400) 08/16/18 11:20 Neut % (Auto) 70.0 % (50-75) 08/16/18 11:20 Lymph % (Auto) 15.0 % (25-40) L 08/16/18 11:20 [place] % (Auto) 7.4 % (3-14) 08/16/18 11:20 Eos % (Auto) 6.9 % (2-4) H 08/16/18 11:20 Baso % (Auto) 0.7 % (0-2) 08/16/18 11:20 Neut # (Auto) 3800 /uL (6566-2393) 08/16/18 11:20 Sodium 144 mmol/L (137-145) 08/16/18 11:20 Potassium 4.0 mmol/L (3.4-5.1) 08/16/18 11:20 Chloride 105 mmol/L (98-107) 08/16/18 11:20 Carbon Dioxide 31 mmol/L (22-32) 08/16/18 11:20 BUN 10 mg/dL (7-17) 08/16/18 11:20 Creatinine 0.80 mg/dL (0.52-1.04) 08/16/18 11:20 Estimated GFR > 60.0 mL/min (>60) 08/16/18 11:20 BUN/Creatinine Ratio 12.5 (6-22) 08/16/18 11:20 Glucose 85 mg/dL (80-110) 08/16/18 11:20 Uric Acid 3.7 mg/dL (2.5-6.2) 08/16/18 11:20 Calcium 8.8 mg/dL (8.4-10.2) 08/16/18 11:20 Total Bilirubin 0.3 mg/dL (0.2-1.3) 08/16/18 11:20 AST 32 IU/L (14-36) 08/16/18 11:20 ALT 30 IU/L (9-52) 08/16/18 11:20 Alkaline Phosphatase 94 U/L (38-126) 08/16/18 11:20 Lactate Dehydrogenase 542 U/L (313-618) 08/16/18 11:20 Total Protein 6.3 g/dL (6.3-8.2) 08/16/18 11:20 Albumin 4.0 g/dL (3.5-5.0) 08/16/18 11:20 Globulin 2.3 g/dL (1.7-4.1) 08/16/18 11:20 Albumin/Globulin Ratio 1.7 (1.0-2.8) 08/16/18 11:20 Ref Test (Refrig) 08/23/18 15:22 BCR-ABL1/abl1, %(IS) 11/17/2017 100 06/15/2018 21.446 08/23/2018 0.91 09/29/2018 0.57 Assessment and Plan (1) CML (chronic myelocytic leukemia) Problem details: Asymptomatic leukocytosis (89669) on routine CBC in . Peripheral blood BCR-ABL1 by PCR showed transcript level of 100% (IS). BMA/Bx on 12/22/2017: CML, BCR-ABL1 positive; chronic phase. No increase in blasts. Reticulin stain shows patchy mild reticulin fibrosis. US showed no hepatosplenomegaly. Hepatitis panel was negative for hepatitis B and C. On Dec 30, 2017, Gleevec 400 mg/d. In the beginning, patient developed tumor lysis syndrome and had to use rasburicase. BCR-ABL1 transcript level 21.446% (IS) on 06/15/2018. Gleevec increased to 800 mg once a day. Assessment: I reviewed the BCR-ABL1 transcript level obtained on 09/29/2018. It was 0.57% international scale. Patient said that she was started on Gleevec in December of 2017. At 6 months, due to persistent elevated BCR-Abl1 transcript level, the dosage of Gleevec was increased to 800 mg once a day. Clinically patient has tolerated extremely well. I talked with her that I will continue monitor her BCR-ABL1 transcript level monthly. If the transcript level is increasing or does not reach major molecular response by 12 months ( less than 0.1%), I will switch the medication to second-generation tyrosine kinase inhibitor with mutational analysis. Plan: 1. Continue Gleevec 800 mg daily 2. CBC, CMP and BCR-ABL1/ABL1 qPCR ([facility]) in one month 3. RTC after the blood test is available for review.
--- NOTE | 2018-10-11 11:42 | PC.NURSE ---
Imatinib script faxed to [facility] pharmacy Olga Calloway RPh
[2018-12-15 11:52] VITALS: BP 128/74; PULSE 78; RESP 16; TEMP 36.7; O2SAT 98
--- NOTE | 2018-12-15 12:33 | P.PNONC_ITS ---
PN -Subjective Interval history: 58 year old female with CML CP now on Gleevec since 12/30/2017 here for scheduled follow up. She is now taking Gleevec at 800 mg once a day. Patient has tolerated the medications very well. Patient does not have any signs or symptoms of nausea or vomiting or diarrhea or constipation. Patient presents here today to review the laboratory monitoring the results of the BCR-ABL1. History of Present Illness: Nena Bloom is a 58 year old female with CML. She presented with asymptomatic leukocytosis detected on routine CBC in Nov 2017 with WBC 57387. Peripheral blood BCR-ABL1 by PCR showed transcript level of 100%. Bone marrow aspiration and biopsy on 12/22/2017 showed chronic myeloid leukemia, BCR-ABL1 positive; chronic phase. No increase in blasts. Reticulin stain shows patchy mild reticulin fibrosis. US showed no hepatosplenomegaly. Hepatitis panel was negative for hepatitis B and C. On Dec 30, 2017, she was then started on Gleevec 400 mg once a day. In the beginning, patient developed tumor lysis syndrome and had to use rasburicase. After about 6 months of treatment with Gleevec 400 mg once a day, BCR-ABL1 transcript level was 21.446% (IS) on 06/15/2018. Therefore, the dosage of Gleevec was increased to 800 mg once a day. She was initially followed by Dr. Mejia. Due to travel convenience, she decided to come to [facility] for continued care. - Patient Self-Reported Symptoms SR Constitution: Fatigue/Malaise SR ears, nose, mouth, throat issues: Swollen glands SR Cardiovascular issues: Dizzy/lightheaded SR Skin issues: Dry skin SR Gastrointestinal issues: Diarrhea SR Musculoskeletal issues: Muscle pain or cramps, Back or neck pain SR Neuro issues: Headache, Lightheaded/dizzy SR Hematologic issues: Bleeding/bruising, Swollen lymph nodes - Additional ROS All systems PM: reviewed and no additional remarkable complaints except as stated Home Medications and Allergies Home Medications Medication Instructions Recorded Confirmed Type duloxetine 60 mg PO DAILY 08/15/18 09/02/18 History fluticasone 2 inh INHALATION DAILY 08/15/18 09/02/18 History glucosamine sulfate [Glucosamine] 500 mg PO TID 08/15/18 09/02/18 History levothyroxine 75 mcg PO DAILY 08/15/18 09/02/18 History loratadine 10 mg PO DAILY 08/15/18 09/02/18 History naproxen sodium [Aleve] 220 mg PO BID PRN 08/15/18 09/02/18 History ramipril [Altace] 10 mg PO DAILY 08/15/18 09/02/18 History zolmitriptan 5 mg PO PRN PRN 08/15/18 09/02/18 History melatonin 5 mg PO PRN PRN 08/22/18 09/02/18 History imatinib 800 mg PO DAILY #60 tab 11/29/18 Rx Allergies Allergy/AdvReac Type Severity Reaction Status Date / Time allopurinol Allergy Intermediate Hives Verified 08/15/18 15:31 acetaminophen [From Vicodin] Allergy Mild Hives Verified 08/15/18 15:31 codeine Allergy Mild Hives Verified 08/15/18 15:31 doxycycline Allergy Mild Hives Verified 08/15/18 15:31 hydrocodone [From Vicodin] Allergy Mild Hives Verified 08/15/18 15:31 Exam Vital signs: Last Vital Signs Temp 98.0 F 12/15/18 11:52 Pulse 78 12/15/18 11:52 Resp 16 12/15/18 11:52 BP 128/74 12/15/18 11:52 Pulse Ox 98 12/15/18 11:52 ECOG 1 Narrative: General: WDWN, NAD, well groomed, pleasant and cooperative. She presents alone today. HEENT: NCAT, EOMI, PERLLA, Anicteric sclera. Oral mucus membrane moist and without ulcers. Neck: Supple, symmetrical, and tracheal midline; No palpable thyromegaly and no palpable lymph nodes. Respiratory: No use of accessory muscles. Clear to auscultation, and no wheezes or rales or rubs. Cardiovascular: Regular rate and rhythm, S1 and S2 normal, no murmurs gallops or rubs. No JVD. No pitting edema of lower extremities. Abdomen: Soft, nontender, non-distended, bowel sounds normal, no palpable organomegaly, no hernia, no palpable masses. Lower extremities: No palpable pedal edema. Lymphatic: no palpable lymph nodes in the neck, axillae, or groins. Musculoskeletal: normal gait and station, no clubbing, no cyanosis, no pitting edema. Skin: no rashes, no ulcers, no petechiae Neurological: Awake and alert and oriented x3. CN II-XII grossly intact. No focal motor or sensory deficit. Psychiatric: Good judgment, good insight, normal affect, normal thought process, cooperative, no depression, no anxiety Results - Labs Lab tests from 11/04/2018, WBC 5.6, hemoglobin 10.8, hematocrit 32.4, platelets 183, sodium 141, potassium 3.9, chloride 105, carbon dioxide 28, BUN 10, creatinine 0.7, glucose 103, calcium 8.6, total bilirubin 0.2, AST 27, ALT 28, alk phos 80, total protein 6.2, albumin 3.9, globulin 2.3 Assessment and Plan (1) CML (chronic myelocytic leukemia) Problem details: Asymptomatic leukocytosis (64706) on routine CBC in . Peripheral blood BCR-ABL1 by PCR showed transcript level of 100% (IS). BMA/Bx on 12/22/2017: CML, BCR-ABL1 positive; chronic phase. No increase in blasts. Reticulin stain shows patchy mild reticulin fibrosis. US showed no hepatosplenomegaly. Hepatitis panel was negative for hepatitis B and C. On Dec 30, 2017, Gleevec 400 mg/d. In the beginning, patient developed tumor lysis syndrome and had to use rasburicase. BCR-ABL1 transcript level 21.446% (IS) on 06/15/2018. Gleevec increased to 800 mg once a day. Assessment: I reviewed the BCR-ABL1 transcript level obtained on 11/04/2017. It was 0.58% international scale. Clinically patient has been doing well and without any new complaints. But the quantitative BCR-ABL1 transcript level did not reach expected milestone of <= 0.1%(IS) at 12 months. Per guideline of NCCN, I will proceed to BCR-ABL1 kinase domain mutation analysis and will consider switching to second line TKI. BCR-ABL1/abl1, %(IS) 11/17/2017 100 06/15/2018 21.446 08/23/2018 0.91 09/29/2018 0.57 11/04/2017 0.58 Plan: 1. Continue Gleevec 800 mg daily for now 2. BCR-ABL1 kinase domain mutation analysis 3. RTC in 2 weeks to review the results and to discuss switching to 2nd gene ration TKI.
[2019-01-09 14:10] VITALS: BP 132/80; PULSE 80; RESP 18; TEMP 36.8; O2SAT 100
--- NOTE | 2019-01-09 14:59 | P.PNONC_ITS ---
PN -Subjective Interval history: 58 year old female with CML CP now on Gleevec since 12/30/2017 here for scheduled follow up. She is now taking Gleevec at 800 mg once a day. Patient has tolerated the medications very well. Patient does not have any signs or symptoms of nausea or vomiting or diarrhea or constipation. Due to persistent elevated blood transcript level of BCR able, we obtained a mutational analysis of the kinase domain. At the results showed no deleterious new mutations identified. Patient presents here today for review of the results and for discussing of switching Gleevec to second-generation tyrosine kinase inhibitors. History of Present Illness: Nena Bloom is a 58 year old female with CML. She presented with asymptomatic leukocytosis detected on routine CBC in Nov 2017 with WBC 28401. Peripheral blood BCR-ABL1 by PCR showed transcript level of 100%. Bone marrow aspiration and biopsy on 12/22/2017 showed chronic myeloid leukemia, BCR-ABL1 positive; chronic phase. No increase in blasts. Reticulin stain shows patchy mild reticulin fibrosis. US showed no hepatosplenomegaly. Hepatitis panel was negative for hepatitis B and C. On Dec 30, 2017, she was then started on Gleevec 400 mg once a day. In the beginning, patient developed tumor lysis syndrome and had to use rasburicase. After about 6 months of treatment with Gleevec 400 mg once a day, BCR-ABL1 transcript level was 21.446% (IS) on 06/15/2018. Therefore, the dosage of Gleevec was increased to 800 mg once a day. She was initially followed by Dr. Mejia. Due to travel convenience, she decided to come to [facility] for continued care. - Patient Self-Reported Symptoms SR Constitution: Fatigue/Malaise SR ears, nose, mouth, throat issues: Swollen glands SR Cardiovascular issues: Dizzy/lightheaded SR Skin issues: Dry skin, Skin rash or itching SR Gastrointestinal issues: Nausea, Vomiting, Diarrhea SR Musculoskeletal issues: Joint pain or swelling, Muscle pain or cramps SR Neuro issues: Headache, Lightheaded/dizzy SR Hematologic issues: Bleeding/bruising, Swollen lymph nodes - Additional ROS All systems PM: reviewed and no additional remarkable complaints except as stated Home Medications and Allergies Home Medications Medication Instructions Recorded Confirmed Type duloxetine 60 mg PO DAILY 08/15/18 01/09/19 History fluticasone 2 inh INHALATION DAILY 08/15/18 01/09/19 History glucosamine sulfate [Glucosamine] 500 mg PO TID 08/15/18 01/09/19 History levothyroxine 75 mcg PO DAILY 08/15/18 01/09/19 History loratadine 10 mg PO DAILY 08/15/18 01/09/19 History naproxen sodium [Aleve] 220 mg PO BID PRN 08/15/18 01/09/19 History ramipril [Altace] 10 mg PO DAILY 08/15/18 01/09/19 History zolmitriptan 5 mg PO PRN PRN 08/15/18 01/09/19 History melatonin 5 mg PO PRN PRN 08/22/18 01/09/19 History dasatinib 100 mg PO DAILY #30 tab 01/09/19 Rx Allergies Allergy/AdvReac Type Severity Reaction Status Date / Time allopurinol Allergy Intermediate Hives Verified 08/15/18 15:31 acetaminophen [From Vicodin] Allergy Mild Hives Verified 08/15/18 15:31 codeine Allergy Mild Hives Verified 08/15/18 15:31 doxycycline Allergy Mild Hives Verified 08/15/18 15:31 hydrocodone [From Vicodin] Allergy Mild Hives Verified 08/15/18 15:31 Exam Vital signs: Vital Signs Temp Pulse Resp BP Pulse Ox 01/09/19 14:10 98.2 F 80 18 132/80 100 Intake and Output 01/08/19 01/09/19 01/09/19 23:59 07:59 15:59 Other: Weight 92.7 kg Patient Weight 01/10/19 07:59 Weight 92.7 kg Narrative: General: WDWN, NAD, well groomed, pleasant and cooperative. She presents alone today. HEENT: NCAT, EOMI, PERLLA, Anicteric sclera. Oral mucus membrane moist and without ulcers. Neck: Supple, symmetrical, and tracheal midline; No palpable thyromegaly and no palpable lymph nodes. Respiratory: No use of accessory muscles. Clear to auscultation, and no wheezes or rales or rubs. Cardiovascular: Regular rate and rhythm, S1 and S2 normal, no murmurs gallops or rubs. No JVD. No pitting edema of lower extremities. Abdomen: Soft, nontender, non-distended, bowel sounds normal, no palpable organomegaly, no hernia, no palpable masses. Lower extremities: No palpable pedal edema. Lymphatic: no palpable lymph nodes in the neck, axillae, or groins. Musculoskeletal: normal gait and station, no clubbing, no cyanosis, no pitting edema. Skin: no rashes, no ulcers, no petechiae Neurological: Awake and alert and oriented x3. CN II-XII grossly intact. No focal motor or sensory deficit. Psychiatric: Good judgment, good insight, normal affect, normal thought process, cooperative, no depression, no anxiety Results - Labs Laboratory Last Values WBC 5.4 X10^3/uL (4.5-11.0) 08/16/18 11:20 RBC 3.71 X10^6/uL (4.0-5.2) L 08/16/18 11:20 Hgb 11.4 g/dL (12.0-16.0) L 08/16/18 11:20 Hct 34.2 % (36-46) L 08/16/18 11:20 MCV 92.2 fL (80-100) 08/16/18 11:20 MCH 30.7 PG (26-34) 08/16/18 11:20 MCHC 33.3 % (30-36) 08/16/18 11:20 RDW 18.4 % (11.6-14.8) H 08/16/18 11:20 Plt Count 177 X10^3/uL (150-400) 08/16/18 11:20 Neut % (Auto) 70.0 % (50-75) 08/16/18 11:20 Lymph % (Auto) 15.0 % (25-40) L 08/16/18 11:20 Ramsey % (Auto) 7.4 % (3-14) 08/16/18 11:20 Eos % (Auto) 6.9 % (2-4) H 08/16/18 11:20 Baso % (Auto) 0.7 % (0-2) 08/16/18 11:20 Neut # (Auto) 3800 /uL (2917-2750) 08/16/18 11:20 Sodium 144 mmol/L (137-145) 08/16/18 11:20 Potassium 4.0 mmol/L (3.4-5.1) 08/16/18 11:20 Chloride 105 mmol/L (98-107) 08/16/18 11:20 Carbon Dioxide 31 mmol/L (22-32) 08/16/18 11:20 BUN 10 mg/dL (7-17) 08/16/18 11:20 Creatinine 0.80 mg/dL (0.52-1.04) 08/16/18 11:20 Estimated GFR > 60.0 mL/min (>60) 08/16/18 11:20 BUN/Creatinine Ratio 12.5 (6-22) 08/16/18 11:20 Glucose 85 mg/dL (80-110) 08/16/18 11:20 Uric Acid 3.7 mg/dL (2.5-6.2) 08/16/18 11:20 Calcium 8.8 mg/dL (8.4-10.2) 08/16/18 11:20 Total Bilirubin 0.3 mg/dL (0.2-1.3) 08/16/18 11:20 AST 32 IU/L (14-36) 08/16/18 11:20 ALT 30 IU/L (9-52) 08/16/18 11:20 Alkaline Phosphatase 94 U/L (38-126) 08/16/18 11:20 Lactate Dehydrogenase 542 U/L (313-618) 08/16/18 11:20 Total Protein 6.3 g/dL (6.3-8.2) 08/16/18 11:20 Albumin 4.0 g/dL (3.5-5.0) 08/16/18 11:20 Globulin 2.3 g/dL (1.7-4.1) 08/16/18 11:20 Albumin/Globulin Ratio 1.7 (1.0-2.8) 08/16/18 11:20 Ref Test (Refrig) 12/21/18 10:09 Assessment and Plan (1) CML (chronic myelocytic leukemia) Problem details: Asymptomatic leukocytosis (65119) on routine CBC in . Peripheral blood BCR-ABL1 by PCR showed transcript level of 100% (IS). BMA/Bx on 12/22/2017: CML, BCR-ABL1 positive; chronic phase. No increase in blasts. Reticulin stain shows patchy mild reticulin fibrosis. US showed no hepatosplenomegaly. Hepatitis panel was negative for hepatitis B and C. On Dec 30, 2017, Gleevec 400 mg/d. In the beginning, patient developed tumor lysis syndrome and had to use rasburicase. BCR-ABL1 transcript level 21.446% (IS) on 06/15/2018. Gleevec increased to 800 mg once a day. Assessment: I reviewed the BCR-ABL1 transcript level obtained on 11/04/2017. It was 0.58% international scale. Clinically patient has been doing well and without any new complaints. But the quantitative BCR-ABL1 transcript level did not reach expected milestone of <= 0.1%(IS) at 12 months. Per guideline of NCCN, I will proceed to BCR-ABL1 kinase domain mutation analysis which showed no mutations. I talked with the patient that given the sub optimal response to Gleevec even and higher dosage, I would recommend switching to dasatinib 100 mg once a day. I explained to the patient about the potential side effects of dasatinib including fluid retention including possibly pleural fluid collection and pericardial effusion. Patient voiced understanding. I will bring the patient back 2 weeks to follow-up. BCR-ABL1/abl1, %(IS) 11/17/2017 100 06/15/2018 21.446 08/23/2018 0.91 09/29/2018 0.57 11/04/2017 0.58 Plan: 1. Stop Gleevec 800 mg daily for now 2. BCR-ABL1 qPCR analysis 3. EKG 4. Dasatinib 100 mg daily 5. RTC in 2 weeks, CBC, CMP
--- NOTE | 2019-01-19 13:36 | PC.NURSE ---
Pt called asking about her Rx Dasatinib recently approved by [facility]. After reviewing her chart, I found that an Rx had been issued and that it had been placed he her hard chart. I faxed the script to [facility] which is where her imatinib is also sent. Left msg with pt about what had been done, encouraged her to call if she had questions
[2019-01-30 14:37] VITALS: BP 138/75; PULSE 77; RESP 18; TEMP 36.9; O2SAT 97
--- NOTE | 2019-01-30 15:00 | ONC.PN ---
PN -Subjective Interval history: 58 year old female with CML CP. She was on Gleevec since 12/30/2017 until recently when she was switched to Dasatinib 100 mg daily on 01/25/2019 due to failure to achieve landmark qPCR BCR-ABL1 levels. After she started taking Dasatinib 100 mg daily , She is complaining of hawley and hot facial rashes. She reports the same level of diarrhea. She reports no swelling. She reports some muscles aches and joint pain. No shortness of breath. She does not feel tired, but does not feel like doing something. No motivation. It might be depression. Some epigastric indigestion and floated. She tried anti-acid that seems to be helpful. She is having headache every day since she started the dasatinib. It is mild headache. History of Present Illness: Nena Bloom is a 58 year old female with CML. She presented with asymptomatic leukocytosis detected on routine CBC in Nov 2017 with WBC 23372. Peripheral blood BCR-ABL1 by PCR showed transcript level of 100%. Bone marrow aspiration and biopsy on 12/22/2017 showed chronic myeloid leukemia, BCR-ABL1 positive; chronic phase. No increase in blasts. Reticulin stain shows patchy mild reticulin fibrosis. US showed no hepatosplenomegaly. Hepatitis panel was negative for hepatitis B and C. On Dec 30, 2017, she was then started on Gleevec 400 mg once a day. In the beginning, patient developed tumor lysis syndrome and had to use rasburicase. After about 6 months of treatment with Gleevec 400 mg once a day, BCR-ABL1 transcript level was 21.446% (IS) on 06/15/2018. Therefore, the dosage of Gleevec was increased to 800 mg once a day. She was initially followed by Dr. Mejia. Due to travel convenience, she decided to come to [facility] for continued care. - Patient Self-Reported Symptoms SR Constitution: Chills, Weight loss/gain, Fatigue/Malaise SR ears, nose, mouth, throat issues: Congestion SR Cardiovascular issues: Dizzy/lightheaded SR Skin issues: Dry skin, Skin rash or itching, Skin color changes SR Gastrointestinal issues: Poor or no appetite, Change in bowel pattern, Vomiting, Diarrhea, Abdominal pain SR Musculoskeletal issues: Joint pain or swelling, Muscle pain or cramps, Bone pain SR Neuro issues: Headache, Lightheaded/dizzy SR Hematologic issues: Bleeding/bruising, Swollen lymph nodes - Additional ROS All systems PM: reviewed and no additional remarkable complaints except as stated Home Medications and Allergies Home Medications Medication Instructions Recorded Confirmed Type duloxetine 60 mg PO DAILY 08/15/18 01/09/19 History fluticasone propionate 2 inh INHALATION DAILY 08/15/18 01/09/19 History glucosamine sulfate [Glucosamine] 1,500 mg PO DAILY 08/15/18 01/30/19 History levothyroxine 75 mcg PO DAILY 08/15/18 01/09/19 History loratadine 10 mg PO DAILY 08/15/18 01/09/19 History naproxen sodium [Aleve] 220 mg PO BID PRN 08/15/18 01/09/19 History ramipril [Altace] 10 mg PO DAILY 08/15/18 01/09/19 History zolmitriptan 5 mg PO PRN PRN 08/15/18 01/09/19 History melatonin 5 mg PO PRN PRN 08/22/18 01/09/19 History dasatinib 100 mg PO DAILY #30 tab 01/09/19 Rx acetaminophen [Tylenol 8 Hour] 01/30/19 History Allergies Allergy/AdvReac Type Severity Reaction Status Date / Time allopurinol Allergy Intermediate Hives Verified 08/15/18 15:31 acetaminophen [From Vicodin] Allergy Mild Hives Verified 08/15/18 15:31 codeine Allergy Mild Hives Verified 08/15/18 15:31 doxycycline Allergy Mild Hives Verified 08/15/18 15:31 hydrocodone [From Vicodin] Allergy Mild Hives Verified 08/15/18 15:31 Exam Vital signs: Vital Signs Temp Pulse Resp BP Pulse Ox 01/30/19 14:37 98.5 F 77 18 138/75 97 Intake and Output 01/29/19 01/30/19 01/30/19 23:59 07:59 15:59 Other: Weight 95.5 kg Patient Weight 01/30/19 23:59 Weight 95.5 kg Narrative: General: WDWN, NAD, well groomed, pleasant and cooperative. She presents alone today. HEENT: NCAT, EOMI, PERLLA, Anicteric sclera. Oral mucus membrane moist and without ulcers. Neck: Supple, symmetrical, and tracheal midline; No palpable thyromegaly and no palpable lymph nodes. Respiratory: No use of accessory muscles. Clear to auscultation, and no wheezes or rales or rubs. Cardiovascular: Regular rate and rhythm, S1 and S2 normal, no murmurs gallops or rubs. No JVD. No pitting edema of lower extremities. Abdomen: Soft, nontender, non-distended, bowel sounds normal, no palpable organomegaly, no hernia, no palpable masses. Lower extremities: No palpable pedal edema. Lymphatic: no palpable lymph nodes in the neck, axillae, or groins. Musculoskeletal: normal gait and station, no clubbing, no cyanosis, no pitting edema. Skin: no rashes, no ulcers, no petechiae Neurological: Awake and alert and oriented x3. CN II-XII grossly intact. No focal motor or sensory deficit. Psychiatric: Good judgment, good insight, normal affect, normal thought process, cooperative, no depression, no anxiety Results - Labs Laboratory Last Values WBC 5.4 X10^3/uL (4.5-11.0) 08/16/18 11:20 RBC 3.71 X10^6/uL (4.0-5.2) L 08/16/18 11:20 Hgb 11.4 g/dL (12.0-16.0) L 08/16/18 11:20 Hct 34.2 % (36-46) L 08/16/18 11:20 MCV 92.2 fL (80-100) 08/16/18 11:20 MCH 30.7 PG (26-34) 08/16/18 11:20 MCHC 33.3 % (30-36) 08/16/18 11:20 RDW 18.4 % (11.6-14.8) H 08/16/18 11:20 Plt Count 177 X10^3/uL (150-400) 08/16/18 11:20 Neut % (Auto) 70.0 % (50-75) 08/16/18 11:20 Lymph % (Auto) 15.0 % (25-40) L 08/16/18 11:20 [place]arton % (Auto) 7.4 % (3-14) 08/16/18 11:20 Eos % (Auto) 6.9 % (2-4) H 08/16/18 11:20 Baso % (Auto) 0.7 % (0-2) 08/16/18 11:20 Neut # (Auto) 3800 /uL (3382-1263) 08/16/18 11:20 Sodium 144 mmol/L (137-145) 08/16/18 11:20 Potassium 4.0 mmol/L (3.4-5.1) 08/16/18 11:20 Chloride 105 mmol/L (98-107) 08/16/18 11:20 Carbon Dioxide 31 mmol/L (22-32) 08/16/18 11:20 BUN 10 mg/dL (7-17) 08/16/18 11:20 Creatinine 0.80 mg/dL (0.52-1.04) 08/16/18 11:20 Estimated GFR > 60.0 mL/min (>60) 08/16/18 11:20 BUN/Creatinine Ratio 12.5 (6-22) 08/16/18 11:20 Glucose 85 mg/dL (80-110) 08/16/18 11:20 Uric Acid 3.7 mg/dL (2.5-6.2) 08/16/18 11:20 Calcium 8.8 mg/dL (8.4-10.2) 08/16/18 11:20 Total Bilirubin 0.3 mg/dL (0.2-1.3) 08/16/18 11:20 AST 32 IU/L (14-36) 08/16/18 11:20 ALT 30 IU/L (9-52) 08/16/18 11:20 Alkaline Phosphatase 94 U/L (38-126) 08/16/18 11:20 Lactate Dehydrogenase 542 U/L (313-618) 08/16/18 11:20 Total Protein 6.3 g/dL (6.3-8.2) 08/16/18 11:20 Albumin 4.0 g/dL (3.5-5.0) 08/16/18 11:20 Globulin 2.3 g/dL (1.7-4.1) 08/16/18 11:20 Albumin/Globulin Ratio 1.7 (1.0-2.8) 08/16/18 11:20 Ref Test (Refrig) 12/21/18 10:09 Assessment and Plan (1) CML (chronic myelocytic leukemia) Problem details: Asymptomatic leukocytosis (23462) on routine CBC in 11/20170. Peripheral blood BCR-ABL1 by PCR showed transcript level of 100% (IS). BMA/Bx on 12/22/2017: CML, BCR-ABL1 positive; chronic phase. No increase in blasts. Reticulin stain shows patchy mild reticulin fibrosis. US showed no hepatosplenomegaly. Hepatitis panel was negative for hepatitis B and C. On Dec 30, 2017, Gleevec 400 mg/d. In the beginning, patient developed tumor lysis syndrome and had to use rasburicase. BCR-ABL1 transcript level 21.446% (IS) on 06/15/2018. Gleevec increased to 800 mg once a day. Assessment: I reviewed the BCR-ABL1 transcript level obtained on 11/04/2017. It was 0.58% international scale. Clinically patient has been doing well and without any new complaints. But the quantitative BCR-ABL1 transcript level did not reach expected milestone of <= 0.1%(IS) at 12 months. Per guideline of NCCN, I will proceed to BCR-ABL1 kinase domain mutation analysis which showed no mutations. I talked with the patient that given the sub optimal response to Gleevec even and higher dosage, I would recommend switching to dasatinib 100 mg once a day. Patient started taking dasatinib 100 mg daily on 01/25/2019. Overall it seems to me that she has tolerated well. BCR-ABL1/abl1, %(IS) 11/17/2017 100 06/15/2018 21.446 08/23/2018 0.91 09/29/2018 0.57 11/04/2017 0.58 Plan: 1. BCR-ABL1 qPCR analysis, and CBC, CMP 2. Continue Dasatinib 100 mg daily 3. RTC MD visit 02/09/19, EKG 4. I instructed her to call for any concerns or questions.
--- NOTE | 2019-01-30 16:04 | ONC.SCHED ---
due to patient not getting her BCRABL on 01/09 since the lab canceled it. I called over and spoke to Bing to make sure that he could view the lab order. I also sent pt with a copy of the actual order.
[2019-01-31 14:41] LABS: Add Manual Diff / Slide Review NO; Basophils Absolute Auto 0 /uL (0-100); Basophils Percent Auto 0.6 % (0-2); Eosinophils Absolute Auto 200 /uL (0-450); Eosinophils Percent Auto 4.7 % (2-4); Hematocrit 29.1 % (36-46); Hemoglobin 9.5 g/dL (12.0-16.0); Lymphocytes Absolute Auto 1000 /uL (1100-4500); Lymphocytes Percent Auto 20.4 % (25-40); Mean Corpuscular HGB Conc 32.8 % (30-36); Mean Corpuscular Hemoglobin 31.4 PG (26-34); Mean Corpuscular Volume 95.6 fL (80-100); Monocytes Absolute Auto 400 /uL (0-900); Monocytes Percent Auto 8.9 % (3-14); Neutrophils Absolute Auto 3200 /uL (1500-7000); Neutrophils Percent Auto 65.4 % (50-75); Platelet Count 162 X10^3/uL (150-400); Red Blood Cell Count 3.04 X10^6/uL (4.0-5.2); Red Cell Distribution Width 15.3 % (11.6-14.8); White Blood Cell Count 4.9 X10^3/uL (4.5-11.0)
[2019-01-31 16:48] LABS: Alanine Aminotransferase 30 IU/L (9-52); Albumin 3.9 g/dL (3.5-5.0); Albumin Globulin Ratio 1.9 (1.0-2.8); Alkaline Phosphatase 73 U/L (38-126); Aspartate Aminotransferase 33 IU/L (14-36); BUN Creatinine Ratio 18.3 (6-22); Bilirubin Total 0.4 mg/dL (0.2-1.3); Blood Urea Nitrogen 11 mg/dL (7-17); Calcium 8.7 mg/dL (8.4-10.2); Carbon Dioxide 27 mmol/L (22-32); Chloride 103 mmol/L (98-107); Estimated Glomerular Filt Rate > 60.0 mL/min (>60); Globulin 2.1 g/dL (1.7-4.1); Glucose 80 mg/dL (80-110); HEMOLYSIS < 15 (0-50); Potassium 3.9 mmol/L (3.4-5.1); Sodium 139 mmol/L (137-145)
[2019-02-09 17:14] VITALS: BP 133/78; PULSE 72; RESP 18; TEMP 36.7; O2SAT 100
--- NOTE | 2019-02-09 17:17 | ONC.PN ---
PN -Subjective Interval history: 58 year old female with CML CP. She was on Gleevec since 12/30/2017 until recently when she was switched to Dasatinib 100 mg daily on 01/25/2019 due to failure to achieve landmark qPCR BCR-ABL1 levels. She presents today for scheduled follow up visit. She reports no new signs or symptoms. No swelling. No sob, No cp. She has good appetite, and no nausea or vomiting. Her abdominal fullness is gone now. History of Present Illness: Nena Bloom is a 58 year old female with CML. She presented with asymptomatic leukocytosis detected on routine CBC in Nov 2017 with WBC 52074. Peripheral blood BCR-ABL1 by PCR showed transcript level of 100%. Bone marrow aspiration and biopsy on 12/22/2017 showed chronic myeloid leukemia, BCR-ABL1 positive; chronic phase. No increase in blasts. Reticulin stain shows patchy mild reticulin fibrosis. US showed no hepatosplenomegaly. Hepatitis panel was negative for hepatitis B and C. On Dec 30, 2017, she was then started on Gleevec 400 mg once a day. In the beginning, patient developed tumor lysis syndrome and had to use rasburicase. After about 6 months of treatment with Gleevec 400 mg once a day, BCR-ABL1 transcript level was 21.446% (IS) on 06/15/2018. Therefore, the dosage of Gleevec was increased to 800 mg once a day. She was initially followed by Dr. Mejia. Due to travel convenience, she decided to come to [facility] for continued care. - Patient Self-Reported Symptoms SR Constitution: Chills, Weight loss/gain, Fatigue/Malaise SR ears, nose, mouth, throat issues: Congestion SR Cardiovascular issues: Dizzy/lightheaded SR Skin issues: Dry skin, Skin rash or itching, Skin color changes SR Gastrointestinal issues: Poor or no appetite, Change in bowel pattern, Vomiting, Diarrhea, Abdominal pain SR Musculoskeletal issues: Joint pain or swelling, Muscle pain or cramps, Bone pain SR Neuro issues: Headache, Lightheaded/dizzy SR Hematologic issues: Bleeding/bruising, Swollen lymph nodes - Additional ROS All systems PM: reviewed and no additional remarkable complaints except as stated Home Medications and Allergies Home Medications Medication Instructions Recorded Confirmed Type duloxetine 60 mg PO DAILY 08/15/18 01/09/19 History fluticasone propionate 2 inh INHALATION DAILY 08/15/18 01/09/19 History glucosamine sulfate [Glucosamine] 1,500 mg PO DAILY 08/15/18 01/30/19 History levothyroxine 75 mcg PO DAILY 08/15/18 01/09/19 History loratadine 10 mg PO DAILY 08/15/18 01/09/19 History naproxen sodium [Aleve] 220 mg PO BID PRN 08/15/18 01/09/19 History ramipril [Altace] 10 mg PO DAILY 08/15/18 01/09/19 History zolmitriptan 5 mg PO PRN PRN 08/15/18 01/09/19 History melatonin 5 mg PO PRN PRN 08/22/18 01/09/19 History dasatinib 100 mg PO DAILY #30 tab 01/09/19 Rx acetaminophen [Tylenol 8 Hour] 01/30/19 History Allergies Allergy/AdvReac Type Severity Reaction Status Date / Time allopurinol Allergy Intermediate Hives Verified 08/15/18 15:31 acetaminophen [From Vicodin] Allergy Mild Hives Verified 08/15/18 15:31 codeine Allergy Mild Hives Verified 08/15/18 15:31 doxycycline Allergy Mild Hives Verified 08/15/18 15:31 hydrocodone [From Vicodin] Allergy Mild Hives Verified 08/15/18 15:31 Exam Vital signs: Vital Signs Temp Pulse Resp BP Pulse Ox 02/09/19 17:14 98.1 F 72 18 133/78 100 Intake and Output 02/09/19 02/09/19 02/09/19 07:59 15:59 23:59 Other: Weight 90.9 kg Patient Weight 02/09/19 23:59 Weight 90.9 kg Narrative: General: WDWN, NAD, well groomed, pleasant and cooperative. She presents alone today. HEENT: NCAT, EOMI, PERLLA, Anicteric sclera. Oral mucus membrane moist and without ulcers. Neck: Supple, symmetrical, and tracheal midline; No palpable thyromegaly and no palpable lymph nodes. Respiratory: No use of accessory muscles. Clear to auscultation, and no wheezes Cardiovascular: Regular rate and rhythm, S1 and S2 normal, no murmurs gallops or rubs Abdomen: Soft, nontender, non-distended, bowel sounds normal, no palpable organomegaly, no hernia, no palpable masses. Lower extremities: No palpable pedal edema. Lymphatic: no palpable lymph nodes in the neck, axillae Musculoskeletal: normal gait and station, no clubbing, no cyanosis, no pitting edema. Skin: no rashes, no ulcers, no petechiae Neurological: Awake and alert and oriented x3. CN II-XII grossly intact. No focal motor or sensory deficit. Psychiatric: Good judgment, good insight, normal affect, normal thought process, cooperative, no depression, no anxiety Results - Labs Laboratory Last Values WBC 4.9 X10^3/uL (4.5-11.0) 01/31/19 14:05 RBC 3.04 X10^6/uL (4.0-5.2) L 01/31/19 14:05 Hgb 9.5 g/dL (12.0-16.0) L 01/31/19 14:05 Hct 29.1 % (36-46) L 01/31/19 14:05 MCV 95.6 fL (80-100) 01/31/19 14:05 MCH 31.4 PG (26-34) 01/31/19 14:05 MCHC 32.8 % (30-36) 01/31/19 14:05 RDW 15.3 % (11.6-14.8) H 01/31/19 14:05 Plt Count 162 X10^3/uL (150-400) 01/31/19 14:05 Neut % (Auto) 65.4 % (50-75) 01/31/19 14:05 Lymph % (Auto) 20.4 % (25-40) L 01/31/19 14:05 [place] % (Auto) 8.9 % (3-14) 01/31/19 14:05 Eos % (Auto) 4.7 % (2-4) H 01/31/19 14:05 Baso % (Auto) 0.6 % (0-2) 01/31/19 14:05 Neut # (Auto) 3200 /uL (5255-6251) 01/31/19 14:05 Lymph # (Auto) 1000 /uL (4582-0383) L 01/31/19 14:05 [place] # (Auto) 400 /uL (0-900) 01/31/19 14:05 Eos # (Auto) 200 /uL (0-450) 01/31/19 14:05 Baso # (Auto) 0 /uL (0-100) 01/31/19 14:05 Sodium 139 mmol/L (137-145) 01/31/19 14:05 Potassium 3.9 mmol/L (3.4-5.1) 01/31/19 14:05 Chloride 103 mmol/L (98-107) 01/31/19 14:05 Carbon Dioxide 27 mmol/L (22-32) 01/31/19 14:05 BUN 11 mg/dL (7-17) 01/31/19 14:05 Creatinine 0.60 mg/dL (0.52-1.04) 01/31/19 14:05 Estimated GFR > 60.0 mL/min (>60) 01/31/19 14:05 BUN/Creatinine Ratio 18.3 (6-22) 01/31/19 14:05 Glucose 80 mg/dL (80-110) 01/31/19 14:05 Uric Acid 3.7 mg/dL (2.5-6.2) 08/16/18 11:20 Calcium 8.7 mg/dL (8.4-10.2) 01/31/19 14:05 Total Bilirubin 0.4 mg/dL (0.2-1.3) 01/31/19 14:05 AST 33 IU/L (14-36) 01/31/19 14:05 ALT 30 IU/L (9-52) 01/31/19 14:05 Alkaline Phosphatase 73 U/L (38-126) 01/31/19 14:05 Lactate Dehydrogenase 542 U/L (313-618) 08/16/18 11:20 Total Protein 6.0 g/dL (6.3-8.2) L 01/31/19 14:05 Albumin 3.9 g/dL (3.5-5.0) 01/31/19 14:05 Globulin 2.1 g/dL (1.7-4.1) 01/31/19 14:05 Albumin/Globulin Ratio 1.9 (1.0-2.8) 01/31/19 14:05 Specimen Hemolysis Cancelled 01/30/19 15:52 Ref Test (Refrig) 01/31/19 14:05 Assessment and Plan (1) CML (chronic myelocytic leukemia) Assessment: Asymptomatic leukocytosis (88349) on routine CBC in 11/2017. Peripheral blood BCR-ABL1 by PCR showed transcript level of 100% (IS). BMA/Bx on 12/22/2017: CML, BCR-ABL1 positive; chronic phase. No increase in blasts. Reticulin stain shows patchy mild reticulin fibrosis. US showed no hepatosplenomegaly. Hepatitis panel was negative for hepatitis B and C. On Dec 30, 2017, Gleevec 400 mg/d. In the beginning, patient developed tumor lysis syndrome and had to use rasburicase. BCR-ABL1 transcript level 21.446% (IS) on 06/15/2018. However, the quantitative BCR-ABL1 transcript level did not reach expected milestone of <= 0.1%(IS) at 12 months. BCR-ABL1 kinase domain mutation analysis showed no mutations. Gleevec was switched to dasatinib 100 mg on 01/25/2019 Patient started taking dasatinib 100 mg daily on 01/25/2019. Overall it seems to me that she has tolerated well. BCR-ABL1/abl1, %(IS) 11/17/2017 100 Gleevec 06/15/2018 21.446 Gleevec 08/23/2018 0.91 Gleevec 09/29/2018 0.57 Gleevec 11/04/2017 0.58 Gleevec 01/31/2018 0.153 Dasatinib Her EKG 02/09/2019 showed OTc 404 ms Plan: 1. Continue Dasatinib 100 mg daily 2. RTC MD visit 03/06/2019, CBC, CMP, EKG, and BCR-ABL1(qPCR) 3. I instructed her to call for any concerns or questions. (2) Anemia She has a slightly worse anemia than prior to the treatment. It may be related to the use of dasatinib. Clinically she does not have any signs or symptoms attributed to the low level of hemoglobin level. I will continue current active surveillance. When she comes back in 2 weeks we will recheck CBC and CMP.
[2019-03-01 13:23] LABS: Add Manual Diff / Slide Review NO; Basophils Absolute Auto 100 /uL (0-100); Basophils Percent Auto 1.1 % (0-2); Eosinophils Absolute Auto 500 /uL (0-450); Eosinophils Percent Auto 8.4 % (2-4); Hemoglobin 10.6 g/dL (12.0-16.0); Lymphocytes Absolute Auto 1300 /uL (1100-4500); Lymphocytes Percent Auto 22.8 % (25-40); Mean Corpuscular HGB Conc 33.2 % (30-36); Mean Corpuscular Volume 93.5 fL (80-100); Monocytes Absolute Auto 500 /uL (0-900); Monocytes Percent Auto 9.1 % (3-14); Neutrophils Absolute Auto 3300 /uL (1500-7000); Neutrophils Percent Auto 58.6 % (50-75); Platelet Count 146 X10^3/uL (150-400); Red Blood Cell Count 3.42 X10^6/uL (4.0-5.2); Red Cell Distribution Width 14.7 % (11.6-14.8); White Blood Cell Count 5.6 X10^3/uL (4.5-11.0)
[2019-03-01 13:33] LABS: Alanine Aminotransferase 26 IU/L (9-52); Albumin 4.3 g/dL (3.5-5.0); Albumin Globulin Ratio 1.8 (1.0-2.8); Alkaline Phosphatase 74 U/L (38-126); Aspartate Aminotransferase 28 IU/L (14-36); BUN Creatinine Ratio 18.6 (6-22); Bilirubin Total 0.2 mg/dL (0.2-1.3); Blood Urea Nitrogen 13 mg/dL (7-17); Calcium 8.9 mg/dL (8.4-10.2); Carbon Dioxide 28 mmol/L (22-32); Chloride 104 mmol/L (98-107); Estimated Glomerular Filt Rate > 60.0 mL/min (>60); Globulin 2.4 g/dL (1.7-4.1); Glucose 85 mg/dL (80-110); HEMOLYSIS < 15 (0-50); Potassium 4.1 mmol/L (3.4-5.1); Sodium 140 mmol/L (137-145); Total Protein 6.7 g/dL (6.3-8.2)
--- NOTE | 2019-03-13 11:18 | ONC.MSW ---
Description: T/C re: [employer] Co-Pay and Delivery Coordination Activity: HVAC COMMERCIAL SALESPERSON called the [facility] to confirm that they have processed pt's new co-pay information from [employer], and that the medication was ready for delivery. After a few more calls, this information was confirmed and all that was needed was for pt to call [facility] to confirm delivery. Called pt and updated her on the status, as well as provided the phone number for her to call [facility] and complete what was needed to expedite delivery. The [employer] nicho information is below: Group: [id number] RxBin: [id number] PCN: [id number] Effective: 03/09/19
--- NOTE | 2019-03-13 11:26 | ONC.MSW ---
Pt requested assistance from the [facility] Medical Relief Fund for $600 to be applied to her medical bill. COAL BRIQUETTE MACHINE OPERATOR submitted a check to [facility] [place], then will f/u with bringing it to Patient Accounts. Pt has now exhausted the funds available to her through the MRF.
--- NOTE | 2019-03-16 10:09 | ONC.MSW ---
Description: Financial Assistance Activity: EXERCISE EQUIPMENT REPAIR TECHNICIAN provided a check for $600 to pt's outstanding medical bill. She has now utilized all funds available to her through the [facility] Medical Relief Fund.
--- NOTE | 2019-03-20 16:14 | ONC.SCHED ---
Patient was mistakenly cancelled on 03/16/19. put in at 1620, no other appointment times available
[2019-03-23 17:23] VITALS: BP 131/80; PULSE 67; RESP 18; TEMP 36.8; O2SAT 100
--- NOTE | 2019-03-23 17:26 | ONC.PN ---
PN -Subjective Interval history: Nena Bloom is a 59 year old female with CML. She presented with asymptomatic leukocytosis detected on routine CBC in Nov 2017 with WBC 47146. Peripheral blood BCR-ABL1 by PCR showed transcript level of 100%. Bone marrow aspiration and biopsy on 12/22/2017 showed chronic myeloid leukemia, BCR-ABL1 positive; chronic phase. No increase in blasts. Reticulin stain shows patchy mild reticulin fibrosis. US showed no hepatosplenomegaly. Hepatitis panel was negative for hepatitis B and C. On Dec 30, 2017, she was then started on Gleevec 400 mg once a day. In the beginning, patient developed tumor lysis syndrome and had to use rasburicase. After about 6 months of treatment with Gleevec 400 mg once a day, BCR-ABL1 transcript level was 21.446% (IS) on 06/15/2018. Therefore, the dosage of Gleevec was increased to 800 mg once a day. She was initially followed by Dr. Mejia. Due to travel convenience, she decided to come to [facility] for continued care. On 01/25/2019 when she was switched to Dasatinib 100 mg daily due to failure to achieve landmark qPCR BCR-ABL1 levels. She presents today for scheduled follow up visit. She reports no new signs or symptoms. No swelling. No sob, No cp. She has good appetite, and no nausea or vomiting. Her abdominal fullness is gone now. - Patient Self-Reported Symptoms SR Constitution: Chills, Weight loss/gain, Fatigue/Malaise SR ears, nose, mouth, throat issues: Congestion SR Cardiovascular issues: Dizzy/lightheaded SR Skin issues: Dry skin, Skin rash or itching, Skin color changes SR Gastrointestinal issues: Poor or no appetite, Change in bowel pattern, Vomiting, Diarrhea, Abdominal pain SR Musculoskeletal issues: Joint pain or swelling, Muscle pain or cramps, Bone pain SR Neuro issues: Headache, Lightheaded/dizzy SR Hematologic issues: Bleeding/bruising, Swollen lymph nodes - Additional ROS All systems PM: reviewed and no additional remarkable complaints except as stated Home Medications and Allergies Home Medications Medication Instructions Recorded Confirmed Type duloxetine 60 mg PO DAILY 08/15/18 01/09/19 History fluticasone propionate 2 inh INHALATION DAILY 08/15/18 01/09/19 History glucosamine sulfate [Glucosamine] 1,500 mg PO DAILY 08/15/18 01/30/19 History levothyroxine 75 mcg PO DAILY 08/15/18 01/09/19 History loratadine 10 mg PO DAILY 08/15/18 01/09/19 History naproxen sodium [Aleve] 220 mg PO BID PRN 08/15/18 01/09/19 History ramipril [Altace] 10 mg PO DAILY 08/15/18 01/09/19 History zolmitriptan 5 mg PO PRN PRN 08/15/18 01/09/19 History melatonin 5 mg PO PRN PRN 08/22/18 01/09/19 History dasatinib 100 mg PO DAILY #30 tab 01/09/19 Rx acetaminophen [Tylenol 8 Hour] 01/30/19 History Allergies Allergy/AdvReac Type Severity Reaction Status Date / Time allopurinol Allergy Intermediate Hives Verified 08/15/18 15:31 acetaminophen [From Vicodin] Allergy Mild Hives Verified 08/15/18 15:31 codeine Allergy Mild Hives Verified 08/15/18 15:31 doxycycline Allergy Mild Hives Verified 08/15/18 15:31 hydrocodone [From Vicodin] Allergy Mild Hives Verified 08/15/18 15:31 Exam Vital signs: Last Vital Signs Temp 98.2 F 03/23/19 17:23 Pulse 67 03/23/19 17:23 Resp 18 03/23/19 17:23 BP 131/80 03/23/19 17:23 Pulse Ox 100 03/23/19 17:23 ECOG 1 Narrative: General: WDWN, NAD, well groomed, pleasant and cooperative. She presents alone today. HEENT: NCAT, EOMI, PERLLA, Anicteric sclera. Oral mucus membrane moist and without ulcers. Neck: Supple, symmetrical, and tracheal midline; No palpable thyromegaly and no palpable lymph nodes. Respiratory: No use of accessory muscles. Clear to auscultation, and no wheezes Cardiovascular: Regular rate and rhythm, S1 and S2 normal, no murmurs gallops or rubs Abdomen: Soft, nontender, non-distended, bowel sounds normal, no palpable organomegaly, no hernia, no palpable masses. Lower extremities: No palpable pedal edema. Lymphatic: no palpable lymph nodes in the neck, axillae Musculoskeletal: normal gait and station, no clubbing, no cyanosis, no pitting edema. Skin: no rashes, no ulcers, no petechiae Neurological: Awake and alert and oriented x3. CN II-XII grossly intact. No focal motor or sensory deficit. Psychiatric: Good judgment, good insight, normal affect, normal thought process, cooperative, no depression, no anxiety Results - Labs Laboratory Last Values WBC 5.6 X10^3/uL (4.5-11.0) 03/01/19 13:07 RBC 3.42 X10^6/uL (4.0-5.2) L 03/01/19 13:07 Hgb 10.6 g/dL (12.0-16.0) L 03/01/19 13:07 Hct 32.0 % (36-46) L 03/01/19 13:07 MCV 93.5 fL (80-100) 03/01/19 13:07 MCH 31.0 PG (26-34) 03/01/19 13:07 MCHC 33.2 % (30-36) 03/01/19 13:07 RDW 14.7 % (11.6-14.8) 03/01/19 13:07 Plt Count 146 X10^3/uL (150-400) L 03/01/19 13:07 Neut % (Auto) 58.6 % (50-75) 03/01/19 13:07 Lymph % (Auto) 22.8 % (25-40) L 03/01/19 13:07 [place] % (Auto) 9.1 % (3-14) 03/01/19 13:07 Eos % (Auto) 8.4 % (2-4) H 03/01/19 13:07 Baso % (Auto) 1.1 % (0-2) 03/01/19 13:07 Neut # (Auto) 3300 /uL (2918-9548) 03/01/19 13:07 Lymph # (Auto) 1300 /uL (2180-0841) 03/01/19 13:07 [place] # (Auto) 500 /uL (0-900) 03/01/19 13:07 Eos # (Auto) 500 /uL (0-450) H 03/01/19 13:07 Baso # (Auto) 100 /uL (0-100) 03/01/19 13:07 Sodium 140 mmol/L (137-145) 03/01/19 13:07 Potassium 4.1 mmol/L (3.4-5.1) 03/01/19 13:07 Chloride 104 mmol/L (98-107) 03/01/19 13:07 Carbon Dioxide 28 mmol/L (22-32) 03/01/19 13:07 BUN 13 mg/dL (7-17) 03/01/19 13:07 Creatinine 0.70 mg/dL (0.52-1.04) 03/01/19 13:07 Estimated GFR > 60.0 mL/min (>60) 03/01/19 13:07 BUN/Creatinine Ratio 18.6 (6-22) 03/01/19 13:07 Glucose 85 mg/dL (80-110) 03/01/19 13:07 Uric Acid 3.7 mg/dL (2.5-6.2) 08/16/18 11:20 Calcium 8.9 mg/dL (8.4-10.2) 03/01/19 13:07 Total Bilirubin 0.2 mg/dL (0.2-1.3) 03/01/19 13:07 AST 28 IU/L (14-36) 03/01/19 13:07 ALT 26 IU/L (9-52) 03/01/19 13:07 Alkaline Phosphatase 74 U/L (38-126) 03/01/19 13:07 Lactate Dehydrogenase 542 U/L (313-618) 08/16/18 11:20 Total Protein 6.7 g/dL (6.3-8.2) 03/01/19 13:07 Albumin 4.3 g/dL (3.5-5.0) 03/01/19 13:07 Globulin 2.4 g/dL (1.7-4.1) 03/01/19 13:07 Albumin/Globulin Ratio 1.8 (1.0-2.8) 03/01/19 13:07 Specimen Hemolysis Cancelled 01/30/19 15:52 Ref Test (Refrig) 03/01/19 13:07 Assessment and Plan (1) CML (chronic myelocytic leukemia) Overview: Asymptomatic leukocytosis (62840) on routine CBC in 11/2017. Peripheral blood BCR-ABL1 by PCR showed transcript level of 100% (IS). BMA/Bx on 12/22/2017: CML, BCR-ABL1 positive; chronic phase. No increase in blasts. Reticulin stain shows patchy mild reticulin fibrosis. US showed no hepatosplenomegaly. Hepatitis panel was negative for hepatitis B and C. On Dec 30, 2017, Gleevec 400 mg/d. In the beginning, patient developed tumor lysis syndrome and had to use rasburicase. BCR-ABL1 transcript level 21.446% (IS) on 06/15/2018. However, the quantitative BCR-ABL1 transcript level did not reach expected milestone of <= 0.1%(IS) at 12 months. BCR-ABL1 kinase domain mutation analysis showed no mutations. Gleevec was switched to dasatinib 100 mg on 01/25/2019 Patient started taking dasatinib 100 mg daily on 01/25/2019. Overall it seems to me that she has tolerated well. Assessment: BCR-ABL1/abl1, %(IS) 11/17/2017 100 Gleevec 06/15/2018 21.446 Gleevec 08/23/2018 0.91 Gleevec 09/29/2018 0.57 Gleevec 11/04/2017 0.58 Gleevec 01/31/2018 0.153 Dasatinib 03/01/2018 0.415 Dasatinib Her EKG 02/09/2019 showed OTc 404 ms I reviewed the most recent BCR able transcript level with the patient. The level has increased instead of continued decrease. I talked with the patient that I will repeat the BCR-ABL1 level. If it continues to increase, I will refer the patient to Dr. Sales at [facility] for second opinion. Plan: 1. Continue Dasatinib 100 mg daily 2. Labs draw on 04/03/2019, CBC, CMP, and BCR-ABL1(qPCR) 3. RTC 04/24/2019 for follow up visit. [facility] referal? 4. I instructed her to call for any concerns or questions. (2) Anemia She has a mild anemia. Clinically she does not have any signs or symptoms. I will continue current active surveillance.
--- NOTE | 2019-03-23 17:36 | P.PNONC_ITS ---
PN -Subjective Interval history: Nena Bloom is a 59 year old female with CML. She presented with asymptomatic leukocytosis detected on routine CBC in Nov 2017 with WBC 19525. Peripheral blood BCR-ABL1 by PCR showed transcript level of 100%. Bone marrow aspiration and biopsy on 12/22/2017 showed chronic myeloid leukemia, BCR-ABL1 positive; c hronic phase. No increase in blasts. Reticulin stain shows patchy mild reticulin fibrosis. US showed no hepatosplenomegaly. Hepatitis panel was negative for hepatitis B and C. On Dec 30, 2017, she was then started on Gleevec 400 mg once a day. In the beginning, patient developed tumor lysis syndrome and had to use rasburicase. After about 6 months of treatment with Gleevec 400 mg once a day, BCR-ABL1 transcript level was 21.446% (IS) on 06/15/2018. Therefore, the dosage of Gleevec was increased to 800 mg once a day. She was initially followed by Dr. Mejia. Due to travel convenience, she decided to come to [facility] for continued care. On 01/25/2019 when she was switched to Dasatinib 100 mg daily due to failure to achieve landmark qPCR BCR-ABL1 levels. She presents today for scheduled follow up visit. She reports no new signs or symptoms. No swelling. No sob, No cp. She has good appetite, and no nausea or vomiting. Her abdominal fullness is gone now. - Patient Self-Reported Symptoms SR Constitution: Chills, Weight loss/gain, Fatigue/Malaise SR ears, nose, mouth, throat issues: Congestion SR Cardiovascular issues: Dizzy/lightheaded SR Skin issues: Dry skin, Skin rash or itching, Skin color changes SR Gastrointestinal issues: Poor or no appetite, Change in bowel pattern, Vomiting, Diarrhea, Abdominal pain SR Musculoskeletal issues: Joint pain or swelling, Muscle pain or cramps, Bone pain SR Neuro issues: Headache, Lightheaded/dizzy SR Hematologic issues: Bleeding/bruising, Swollen lymph nodes - Additional ROS All systems PM: reviewed and no additional remarkable complaints except as stated Home Medications and Allergies Home Medications Medication Instructions Recorded Confirmed Type duloxetine 60 mg PO DAILY 08/15/18 01/09/19 History fluticasone propionate 2 inh INHALATION DAILY 08/15/18 01/09/19 History glucosamine sulfate [Glucosamine] 1,500 mg PO DAILY 08/15/18 01/30/19 History levothyroxine 75 mcg PO DAILY 08/15/18 01/09/19 History loratadine 10 mg PO DAILY 08/15/18 01/09/19 History naproxen sodium [Aleve] 220 mg PO BID PRN 08/15/18 01/09/19 History ramipril [Altace] 10 mg PO DAILY 08/15/18 01/09/19 History zolmitriptan 5 mg PO PRN PRN 08/15/18 01/09/19 History melatonin 5 mg PO PRN PRN 08/22/18 01/09/19 History dasatinib 100 mg PO DAILY #30 tab 01/09/19 Rx acetaminophen [Tylenol 8 Hour] 01/30/19 History Allergies Allergy/AdvReac Type Severity Reaction Status Date / Time allopurinol Allergy Intermediate Hives Verified 08/15/18 15:31 acetaminophen [From Vicodin] Allergy Mild Hives Verified 08/15/18 15:31 codeine Allergy Mild Hives Verified 08/15/18 15:31 doxycycline Allergy Mild Hives Verified 08/15/18 15:31 hydrocodone [From Vicodin] Allergy Mild Hives Verified 08/15/18 15:31 Exam Vital signs: Last Vital Signs Temp 98.2 F 03/23/19 17:23 Pulse 67 03/23/19 17:23 Resp 18 03/23/19 17:23 BP 131/80 03/23/19 17:23 Pulse Ox 100 03/23/19 17:23 ECOG 1 Narrative: General: WDWN, NAD, well groomed, pleasant and cooperative. She presents alone today. HEENT: NCAT, EOMI, PERLLA, Anicteric sclera. Oral mucus membrane moist and without ulcers. Neck: Supple, symmetrical, and tracheal midline; No palpable thyromegaly and no palpable lymph nodes. Respiratory: No use of accessory muscles. Clear to auscultation, and no wheezes Cardiovascular: Regular rate and rhythm, S1 and S2 normal, no murmurs gallops or rubs Abdomen: Soft, nontender, non-distended, bowel sounds normal, no palpable organomegaly, no hernia, no palpable masses. Lower extremities: No palpable pedal edema. Lymphatic: no palpable lymph nodes in the neck, axillae Musculoskeletal: normal gait and station, no clubbing, no cyanosis, no pitting edema. Skin: no rashes, no ulcers, no petechiae Neurological: Awake and alert and oriented x3. CN II-XII grossly intact. No focal motor or sensory deficit. Psychiatric: Good judgment, good insight, normal affect, normal thought process, cooperative, no depression, no anxiety Results - Labs Laboratory Last Values WBC 5.6 X10^3/uL (4.5-11.0) 03/01/19 13:07 RBC 3.42 X10^6/uL (4.0-5.2) L 03/01/19 13:07 Hgb 10.6 g/dL (12.0-16.0) L 03/01/19 13:07 Hct 32.0 % (36-46) L 03/01/19 13:07 MCV 93.5 fL (80-100) 03/01/19 13:07 MCH 31.0 PG (26-34) 03/01/19 13:07 MCHC 33.2 % (30-36) 03/01/19 13:07 RDW 14.7 % (11.6-14.8) 03/01/19 13:07 Plt Count 146 X10^3/uL (150-400) L 03/01/19 13:07 Neut % (Auto) 58.6 % (50-75) 03/01/19 13:07 Lymph % (Auto) 22.8 % (25-40) L 03/01/19 13:07 [place] % (Auto) 9.1 % (3-14) 03/01/19 13:07 Eos % (Auto) 8.4 % (2-4) H 03/01/19 13:07 Baso % (Auto) 1.1 % (0-2) 03/01/19 13:07 Neut # (Auto) 3300 /uL (2098-2571) 03/01/19 13:07 Lymph # (Auto) 1300 /uL (6365-9738) 03/01/19 13:07 [place] # (Auto) 500 /uL (0-900) 03/01/19 13:07 Eos # (Auto) 500 /uL (0-450) H 03/01/19 13:07 Baso # (Auto) 100 /uL (0-100) 03/01/19 13:07 Sodium 140 mmol/L (137-145) 03/01/19 13:07 Potassium 4.1 mmol/L (3.4-5.1) 03/01/19 13:07 Chloride 104 mmol/L (98-107) 03/01/19 13:07 Carbon Dioxide 28 mmol/L (22-32) 03/01/19 13:07 BUN 13 mg/dL (7-17) 03/01/19 13:07 Creatinine 0.70 mg/dL (0.52-1.04) 03/01/19 13:07 Estimated GFR > 60.0 mL/min (>60) 03/01/19 13:07 BUN/Creatinine Ratio 18.6 (6-22) 03/01/19 13:07 Glucose 85 mg/dL (80-110) 03/01/19 13:07 Uric Acid 3.7 mg/dL (2.5-6.2) 08/16/18 11:20 Calcium 8.9 mg/dL (8.4-10.2) 03/01/19 13:07 Total Bilirubin 0.2 mg/dL (0.2-1.3) 03/01/19 13:07 AST 28 IU/L (14-36) 03/01/19 13:07 ALT 26 IU/L (9-52) 03/01/19 13:07 Alkaline Phosphatase 74 U/L (38-126) 03/01/19 13:07 Lactate Dehydrogenase 542 U/L (313-618) 08/16/18 11:20 Total Protein 6.7 g/dL (6.3-8.2) 03/01/19 13:07 Albumin 4.3 g/dL (3.5-5.0) 03/01/19 13:07 Globulin 2.4 g/dL (1.7-4.1) 03/01/19 13:07 Albumin/Globulin Ratio 1.8 (1.0-2.8) 03/01/19 13:07 Specimen Hemolysis Cancelled 01/30/19 15:52 Ref Test (Refrig) 03/01/19 13:07 Assessment and Plan (1) CML (chronic myelocytic leukemia) Overview: Asymptomatic leukocytosis (01205) on routine CBC in 11/2017. Peripheral blood BCR-ABL1 by PCR showed transcript level of 100% (IS). BMA/Bx on 12/22/2017: CML, BCR-ABL1 positive; chronic phase. No increase in blasts. Reticulin stain shows patchy mild reticulin fibrosis. US showed no hepatosplenomegaly. Hepatitis panel was negative for hepatitis B and C. On Dec 30, 2017, Gleevec 400 mg/d. In the beginning, patient developed tumor lysis syndrome and had to use rasburicase. BCR-ABL1 transcript level 21.446% (IS) on 06/15/2018. However, the quantitative BCR-ABL1 transcript level did not reach expected milestone of <= 0.1%(IS) at 12 months. BCR-ABL1 kinase domain mutation analysis showed no mutations. Gleevec was switched to dasatinib 100 mg on 01/25/2019 Patient started taking dasatinib 100 mg daily on 01/25/2019. Overall it seems to me that she has tolerated well. Assessment: BCR-ABL1/abl1, %(IS) 11/17/2017 100 Gleevec 06/15/2018 21.446 Gleevec 08/23/2018 0.91 Gleevec 09/29/2018 0.57 Gleevec 11/04/2017 0.58 Gleevec 01/31/2018 0.153 Dasatinib 03/01/2018 0.415 Dasatinib Her EKG 02/09/2019 showed OTc 404 ms I reviewed the most recent BCR able transcript level with the patient. The level has increased instead of continued decrease. I talked with the patient that I will repeat the BCR-ABL1 level. If it continues to increase, I will refer the patient to Dr. Sales at [facility] for second opinion. Plan: 1. Continue Dasatinib 100 mg daily 2. Labs draw on 04/03/2019, CBC, CMP, and BCR-ABL1(qPCR) 3. RTC 04/24/2019 for follow up visit. [facility] referal? 4. I instructed her to call for any concerns or questions. (2) Anemia She has a mild anemia. Clinically she does not have any signs or symptoms. I will continue current active surveillance.
--- NOTE | 2019-04-24 15:19 | ONC.PN ---
PN -Subjective Interval history: Nena Bloom is a 59 year old female with CML. She presented with asymptomatic leukocytosis detected on routine CBC in Nov 2017 with WBC 13077. Peripheral blood BCR-ABL1 by PCR showed transcript level of 100%. Bone marrow aspiration and biopsy on 12/22/2017 showed chronic myeloid leukemia, BCR-ABL1 positive; chronic phase. No increase in blasts. Reticulin stain shows patchy mild reticulin fibrosis. US showed no hepatosplenomegaly. Hepatitis panel was negative for hepatitis B and C. On Dec 30, 2017, she was then started on Gleevec 400 mg once a day. In the beginning, patient developed tumor lysis syndrome and had to use rasburicase. After about 6 months of treatment with Gleevec 400 mg once a day, BCR-ABL1 transcript level was 21.446% (IS) on 06/15/2018. Therefore, the dosage of Gleevec was increased to 800 mg once a day. She was initially followed by Dr. Mejia. Due to travel convenience, she decided to come to [facility] for continued care. On 01/25/2019 when she was switched to Dasatinib 100 mg daily due to failure to achieve landmark qPCR BCR-ABL1 levels. She presents today for scheduled follow up visit. She reports no new signs or symptoms. No swelling. No sob, No cp. She has good appetite, and no nausea or vomiting. Her abdominal fullness is gone now. Interim Events: Since her previous visit with me, patient has had falls 3 times. Patient insisted that all the falls were accidents. One event was due to a tree branch. The the event was due to the shoes. She denies any syncope episodes denies any chest pain shortness breath at the time of the falls. Patient is complaining some lightheadedness. She also is reporting more tired than before. Is having some numbness of the hands. - Patient Self-Reported Symptoms SR Constitution: Chills, Weight loss/gain, Fatigue/Malaise SR ears, nose, mouth, throat issues: Congestion SR Cardiovascular issues: Dizzy/lightheaded SR Skin issues: Dry skin, Skin rash or itching, Skin color changes SR Gastrointestinal issues: Poor or no appetite, Change in bowel pattern, Vomiting, Diarrhea, Abdominal pain SR Musculoskeletal issues: Joint pain or swelling, Muscle pain or cramps, Bone pain SR Neuro issues: Headache, Lightheaded/dizzy SR Hematologic issues: Bleeding/bruising, Swollen lymph nodes - Additional ROS All systems PM: reviewed and no additional remarkable complaints except as stated Home Medications and Allergies Home Medications Medication Instructions Recorded Confirmed Type duloxetine 60 mg PO DAILY 08/15/18 01/09/19 History fluticasone propionate 2 inh INHALATION DAILY 08/15/18 01/09/19 History glucosamine sulfate [Glucosamine] 1,500 mg PO DAILY 08/15/18 01/30/19 History levothyroxine 75 mcg PO DAILY 08/15/18 01/09/19 History loratadine 10 mg PO DAILY 08/15/18 01/09/19 History naproxen sodium [Aleve] 220 mg PO BID PRN 08/15/18 01/09/19 History ramipril [Altace] 10 mg PO DAILY 08/15/18 01/09/19 History zolmitriptan 5 mg PO PRN PRN 08/15/18 01/09/19 History melatonin 5 mg PO PRN PRN 08/22/18 01/09/19 History dasatinib 100 mg PO DAILY #30 tab 01/09/19 Rx acetaminophen [Tylenol 8 Hour] 01/30/19 History Allergies Allergy/AdvReac Type Severity Reaction Status Date / Time allopurinol Allergy Intermediate Hives Verified 08/15/18 15:31 acetaminophen [From Vicodin] Allergy Mild Hives Verified 08/15/18 15:31 codeine Allergy Mild Hives Verified 08/15/18 15:31 doxycycline Allergy Mild Hives Verified 08/15/18 15:31 hydrocodone [From Vicodin] Allergy Mild Hives Verified 08/15/18 15:31 Exam Vital signs: Last Vital Signs Temp 98.2 F 03/23/19 17:23 Pulse 67 03/23/19 17:23 Resp 18 03/23/19 17:23 BP 131/80 03/23/19 17:23 Pulse Ox 100 03/23/19 17:23 ECOG 1 Narrative: General: WDWN, NAD, well groomed, pleasant and cooperative. She presents alone today. HEENT: NCAT, EOMI, PERLLA, Anicteric sclera. Oral mucus membrane moist and without ulcers. Neck: Supple, symmetrical, and tracheal midline; No palpable thyromegaly and no palpable lymph nodes. Respiratory: No use of accessory muscles. Clear to auscultation, and no wheezes Cardiovascular: Regular rate and rhythm, S1 and S2 normal, no murmurs gallops or rubs Abdomen: Soft, nontender, non-distended, bowel sounds normal, no palpable organomegaly, no hernia, no palpable masses. Lower extremities: No palpable pedal edema. Lymphatic: no palpable lymph nodes in the neck, axillae Musculoskeletal: normal gait and station, no clubbing, no cyanosis, no pitting edema. Skin: no rashes, no ulcers, no petechiae Neurological: Awake and alert and oriented x3. CN II-XII grossly intact. No focal motor or sensory deficit. Psychiatric: Good judgment, good insight, normal affect, normal thought process, cooperative, no depression, no anxiety Results - Labs Laboratory Last Values WBC 5.6 X10^3/uL (4.5-11.0) 03/01/19 13:07 RBC 3.42 X10^6/uL (4.0-5.2) L 03/01/19 13:07 Hgb 10.6 g/dL (12.0-16.0) L 03/01/19 13:07 Hct 32.0 % (36-46) L 03/01/19 13:07 MCV 93.5 fL (80-100) 03/01/19 13:07 MCH 31.0 PG (26-34) 03/01/19 13:07 MCHC 33.2 % (30-36) 03/01/19 13:07 RDW 14.7 % (11.6-14.8) 03/01/19 13:07 Plt Count 146 X10^3/uL (150-400) L 03/01/19 13:07 Neut % (Auto) 58.6 % (50-75) 03/01/19 13:07 Lymph % (Auto) 22.8 % (25-40) L 03/01/19 13:07 [place] % (Auto) 9.1 % (3-14) 03/01/19 13:07 Eos % (Auto) 8.4 % (2-4) H 03/01/19 13:07 Baso % (Auto) 1.1 % (0-2) 03/01/19 13:07 Neut # (Auto) 3300 /uL (4089-6538) 03/01/19 13:07 Lymph # (Auto) 1300 /uL (7756-9757) 03/01/19 13:07 [place] # (Auto) 500 /uL (0-900) 03/01/19 13:07 Eos # (Auto) 500 /uL (0-450) H 03/01/19 13:07 Baso # (Auto) 100 /uL (0-100) 03/01/19 13:07 Sodium 140 mmol/L (137-145) 03/01/19 13:07 Potassium 4.1 mmol/L (3.4-5.1) 03/01/19 13:07 Chloride 104 mmol/L (98-107) 03/01/19 13:07 Carbon Dioxide 28 mmol/L (22-32) 03/01/19 13:07 BUN 13 mg/dL (7-17) 03/01/19 13:07 Creatinine 0.70 mg/dL (0.52-1.04) 03/01/19 13:07 Estimated GFR > 60.0 mL/min (>60) 03/01/19 13:07 BUN/Creatinine Ratio 18.6 (6-22) 03/01/19 13:07 Glucose 85 mg/dL (80-110) 03/01/19 13:07 Uric Acid 3.7 mg/dL (2.5-6.2) 08/16/18 11:20 Calcium 8.9 mg/dL (8.4-10.2) 03/01/19 13:07 Total Bilirubin 0.2 mg/dL (0.2-1.3) 03/01/19 13:07 AST 28 IU/L (14-36) 03/01/19 13:07 ALT 26 IU/L (9-52) 03/01/19 13:07 Alkaline Phosphatase 74 U/L (38-126) 03/01/19 13:07 Lactate Dehydrogenase 542 U/L (313-618) 08/16/18 11:20 Total Protein 6.7 g/dL (6.3-8.2) 03/01/19 13:07 Albumin 4.3 g/dL (3.5-5.0) 03/01/19 13:07 Globulin 2.4 g/dL (1.7-4.1) 03/01/19 13:07 Albumin/Globulin Ratio 1.8 (1.0-2.8) 03/01/19 13:07 Specimen Hemolysis Cancelled 01/30/19 15:52 Ref Test (Refrig) 03/01/19 13:07 Assessment and Plan (1) CML (chronic myelocytic leukemia) Overview: Asymptomatic leukocytosis (35541) on routine CBC in 11/2017. Peripheral blood BCR-ABL1 by PCR showed transcript level of 100% (IS). BMA/Bx on 12/22/2017: CML, BCR-ABL1 positive; chronic phase. No increase in blasts. Reticulin stain shows patchy mild reticulin fibrosis. US showed no hepatosplenomegaly. Hepatitis panel was negative for hepatitis B and C. On Dec 30, 2017, Gleevec 400 mg/d. In the beginning, patient developed tumor lysis syndrome and had to use rasburicase. BCR-ABL1 transcript level 21.446% (IS) on 06/15/2018. However, the quantitative BCR-ABL1 transcript level did not reach expected milestone of <= 0.1%(IS) at 12 months. BCR-ABL1 kinase domain mutation analysis showed no mutations. Gleevec was switched to dasatinib 100 mg on 01/25/2019. Patient started taking dasatinib 100 mg daily on 01/25/2019. Overall it seems to me that she has tolerated well. Assessment: Patient recently developed more fatigue and lightheadedness. She had falls 3 times which she attributed to accidents. No other new complaints. I reviewed the BCR-ABL1 transcript level. In my opinion it is decreasing but not as brisk as I have expected. And I will refer the patient to Dr. Sales at [facility] for second opinion. BCR-ABL1/abl1, %(IS) 11/17/2017 100 Gleevec 06/15/2018 21.446 Gleevec 08/23/2018 0.91 Gleevec 09/29/2018 0.57 Gleevec 11/04/2017 0.58 Gleevec 01/31/2018 0.153 Dasatinib 03/01/2018 0.415 Dasatinib 04/03/2019 0.341 Dasatinib Her EKG 02/09/2019 showed OTc 404 ms Plan: 1. Continue Dasatinib 100 mg daily 2. EKG x [address] [facility] [address] Sales for second opinion 4. I instructed her to call for any concerns or questions. (2) Anemia She has a mild anemia. Clinically she does not have any signs or symptoms. I will continue current active surveillance.
--- NOTE | 2019-04-24 15:23 | P.PNONC_ITS ---
PN -Subjective Interval history: Nena Bloom is a 59 year old female with CML. She presented with asymptomatic leukocytosis detected on routine CBC in Nov 2017 with WBC 48329. Peripheral blood BCR-ABL1 by PCR showed transcript level of 100%. Bone marrow aspiration and biopsy on 12/22/2017 showed chronic myeloid leukemia, BCR-ABL1 positive; c hronic phase. No increase in blasts. Reticulin stain shows patchy mild reticulin fibrosis. US showed no hepatosplenomegaly. Hepatitis panel was negative for hepatitis B and C. On Dec 30, 2017, she was then started on Gleevec 400 mg once a day. In the beginning, patient developed tumor lysis syndrome and had to use rasburicase. After about 6 months of treatment with Gleevec 400 mg once a day, BCR-ABL1 transcript level was 21.446% (IS) on 06/15/2018. Therefore, the dosage of Gleevec was increased to 800 mg once a day. She was initially followed by Dr. Mejia. Due to travel convenience, she decided to come to [facility] for continued care. On 01/25/2019 when she was switched to Dasatinib 100 mg daily due to failure to achieve landmark qPCR BCR-ABL1 levels. She presents today for scheduled follow up visit. She reports no new signs or symptoms. No swelling. No sob, No cp. She has good appetite, and no nausea or vomiting. Her abdominal fullness is gone now. Interim Events: Since her previous visit with me, patient has had falls 3 times. Patient insisted that all the falls were accidents. One event was due to a tree branch. The the event was due to the shoes. She denies any syncope episodes denies any chest pain shortness breath at the time of the falls. Patient is complaining some lightheadedness. She also is reporting more tired than before. Is having some numbness of the hands. - Patient Self-Reported Symptoms SR Constitution: Chills, Weight loss/gain, Fatigue/Malaise SR ears, nose, mouth, throat issues: Congestion SR Cardiovascular issues: Dizzy/lightheaded SR Skin issues: Dry skin, Skin rash or itching, Skin color changes SR Gastrointestinal issues: Poor or no appetite, Change in bowel pattern, Vomiting, Diarrhea, Abdominal pain SR Musculoskeletal issues: Joint pain or swelling, Muscle pain or cramps, Bone pain SR Neuro issues: Headache, Lightheaded/dizzy SR Hematologic issues: Bleeding/bruising, Swollen lymph nodes - Additional ROS All systems PM: reviewed and no additional remarkable complaints except as stated Home Medications and Allergies Home Medications Medication Instructions Recorded Confirmed Type duloxetine 60 mg PO DAILY 08/15/18 01/09/19 History fluticasone propionate 2 inh INHALATION DAILY 08/15/18 01/09/19 History glucosamine sulfate [Glucosamine] 1,500 mg PO DAILY 08/15/18 01/30/19 History levothyroxine 75 mcg PO DAILY 08/15/18 01/09/19 History loratadine 10 mg PO DAILY 08/15/18 01/09/19 History naproxen sodium [Aleve] 220 mg PO BID PRN 08/15/18 01/09/19 History ramipril [Altace] 10 mg PO DAILY 08/15/18 01/09/19 History zolmitriptan 5 mg PO PRN PRN 08/15/18 01/09/19 History melatonin 5 mg PO PRN PRN 08/22/18 01/09/19 History dasatinib 100 mg PO DAILY #30 tab 01/09/19 Rx acetaminophen [Tylenol 8 Hour] 01/30/19 History Allergies Allergy/AdvReac Type Severity Reaction Status Date / Time allopurinol Allergy Intermediate Hives Verified 08/15/18 15:31 acetaminophen [From Vicodin] Allergy Mild Hives Verified 08/15/18 15:31 codeine Allergy Mild Hives Verified 08/15/18 15:31 doxycycline Allergy Mild Hives Verified 08/15/18 15:31 hydrocodone [From Vicodin] Allergy Mild Hives Verified 08/15/18 15:31 Exam Vital signs: Last Vital Signs Temp 98.2 F 03/23/19 17:23 Pulse 67 03/23/19 17:23 Resp 18 03/23/19 17:23 BP 131/80 03/23/19 17:23 Pulse Ox 100 03/23/19 17:23 ECOG 1 Narrative: General: WDWN, NAD, well groomed, pleasant and cooperative. She presents alone today. HEENT: NCAT, EOMI, PERLLA, Anicteric sclera. Oral mucus membrane moist and wit hout ulcers. Neck: Supple, symmetrical, and tracheal midline; No palpable thyromegaly and no palpable lymph nodes. Respiratory: No use of accessory muscles. Clear to auscultation, and no wheezes Cardiovascular: Regular rate and rhythm, S1 and S2 normal, no murmurs gallops or rubs Abdomen: Soft, nontender, non-distended, bowel sounds normal, no palpable organomegaly, no hernia, no palpable masses. Lower extremities: No palpable pedal edema. Lymphatic: no palpable lymph nodes in the neck, axillae Musculoskeletal: normal gait and station, no clubbing, no cyanosis, no pitting edema. Skin: no rashes, no ulcers, no petechiae Neurological: Awake and alert and oriented x3. CN II-XII grossly intact. No focal motor or sensory deficit. Psychiatric: Good judgment, good insight, normal affect, normal thought process, cooperative, no depression, no anxiety Results - Labs Laboratory Last Values WBC 5.6 X10^3/uL (4.5-11.0) 03/01/19 13:07 RBC 3.42 X10^6/uL (4.0-5.2) L 03/01/19 13:07 Hgb 10.6 g/dL (12.0-16.0) L 03/01/19 13:07 Hct 32.0 % (36-46) L 03/01/19 13:07 MCV 93.5 fL (80-100) 03/01/19 13:07 MCH 31.0 PG (26-34) 03/01/19 13:07 MCHC 33.2 % (30-36) 03/01/19 13:07 RDW 14.7 % (11.6-14.8) 03/01/19 13:07 Plt Count 146 X10^3/uL (150-400) L 03/01/19 13:07 Neut % (Auto) 58.6 % (50-75) 03/01/19 13:07 Lymph % (Auto) 22.8 % (25-40) L 03/01/19 13:07 [place] % (Auto) 9.1 % (3-14) 03/01/19 13:07 Eos % (Auto) 8.4 % (2-4) H 03/01/19 13:07 Baso % (Auto) 1.1 % (0-2) 03/01/19 13:07 Neut # (Auto) 3300 /uL (9789-3077) 03/01/19 13:07 Lymph # (Auto) 1300 /uL (0734-3149) 03/01/19 13:07 [place] # (Auto) 500 /uL (0-900) 03/01/19 13:07 Eos # (Auto) 500 /uL (0-450) H 03/01/19 13:07 Baso # (Auto) 100 /uL (0-100) 03/01/19 13:07 Sodium 140 mmol/L (137-145) 03/01/19 13:07 Potassium 4.1 mmol/L (3.4-5.1) 03/01/19 13:07 Chloride 104 mmol/L (98-107) 03/01/19 13:07 Carbon Dioxide 28 mmol/L (22-32) 03/01/19 13:07 BUN 13 mg/dL (7-17) 03/01/19 13:07 Creatinine 0.70 mg/dL (0.52-1.04) 03/01/19 13:07 Estimated GFR > 60.0 mL/min (>60) 03/01/19 13:07 BUN/Creatinine Ratio 18.6 (6-22) 03/01/19 13:07 Glucose 85 mg/dL (80-110) 03/01/19 13:07 Uric Acid 3.7 mg/dL (2.5-6.2) 08/16/18 11:20 Calcium 8.9 mg/dL (8.4-10.2) 03/01/19 13:07 Total Bilirubin 0.2 mg/dL (0.2-1.3) 03/01/19 13:07 AST 28 IU/L (14-36) 03/01/19 13:07 ALT 26 IU/L (9-52) 03/01/19 13:07 Alkaline Phosphatase 74 U/L (38-126) 03/01/19 13:07 Lactate Dehydrogenase 542 U/L (313-618) 08/16/18 11:20 Total Protein 6.7 g/dL (6.3-8.2) 03/01/19 13:07 Albumin 4.3 g/dL (3.5-5.0) 03/01/19 13:07 Globulin 2.4 g/dL (1.7-4.1) 03/01/19 13:07 Albumin/Globulin Ratio 1.8 (1.0-2.8) 03/01/19 13:07 Specimen Hemolysis Cancelled 01/30/19 15:52 Ref Test (Refrig) 03/01/19 13:07 Assessment and Plan (1) CML (chronic myelocytic leukemia) Overview: Asymptomatic leukocytosis (40525) on routine CBC in 11/2017. Peripheral blood BCR-ABL1 by PCR showed transcript level of 100% (IS). BMA/Bx on 12/22/2017: CML, BCR-ABL1 positive; chronic phase. No increase in blasts. Reticulin stain shows patchy mild reticulin fibrosis. US showed no hepatosplenomegaly. Hepatitis panel was negative for hepatitis B and C. On Dec 30, 2017, Gleevec 400 mg/d. In the beginning, patient developed tumor lysis syndrome and had to use rasburicase. BCR-ABL1 transcript level 21.446% (IS) on 06/15/2018. However, the quantitative BCR-ABL1 transcript level did not reach expected milestone of <= 0.1%(IS) at 12 months. BCR-ABL1 kinase domain mutation analysis showed no mutations. Gleevec was switched to dasatinib 100 mg on 01/25/2019. Patient started taking dasatinib 100 mg daily on 01/25/2019. Overall it seems to me that she has tolerated well. Assessment: Patient recently developed more fatigue and lightheadedness. She had falls 3 times which she attributed to accidents. No other new complaints. I reviewed the BCR-ABL1 transcript level. In my opinion it is decreasing but not as brisk as I have expected. And I will refer the patient to Dr. Sales at [facility] for second opinion. BCR-ABL1/abl1, %(IS) 11/17/2017 100 Gleevec 06/15/2018 21.446 Gleevec 08/23/2018 0.91 Gleevec 09/29/2018 0.57 Gleevec 11/04/2017 0.58 Gleevec 01/31/2018 0.153 Dasatinib 03/01/2018 0.415 Dasatinib 04/03/2019 0.341 Dasatinib Her EKG 02/09/2019 showed OTc 404 ms Plan: 1. Continue Dasatinib 100 mg daily 2. EKG x [address] [facility] [address] Sales for second opinion 4. I instructed her to call for any concerns or questions. (2) Anemia She has a mild anemia. Clinically she does not have any signs or symptoms. I will continue current active surveillance.
--- NOTE | 2019-06-06 11:51 | ONC.SCHED ---
while making reminder calls, this patient stated that she is going to continue seeing Dr Sales @ [facility] for her cancer care needs/asked me to cancel any upcoming appointments here
--- NOTE | 2020-01-15 11:05 | ONC.SCHED ---
received a fax from [facility] on 01/13/20 requesting prior auth. I submitted prior auth through [employer] and it's currently pending.
--- NOTE | 2020-01-16 16:09 | PC.NURSE ---
TRANSFER OF CARE: I spoke with patient after we had obtained a pre auth as requested by her insurance to find out if she had gotten her dasatinib. She stated that it was sent to wrong office as she did transfer her care to [facility] and will no longer be coming here.
--- NOTE | 2020-12-23 10:52 | ONC.SCHED ---
Taz jacob received. Valid 01/15/21 - 01/15/22. Scanned, placed in ARM, gave to triage.
== END ==
PROVIDERS: PCP Family Medicine; Referring Provider Family Medicine; Visit Provider Internal Medicine Hematology & Oncology
DX: C92.10 Chronic myeloid leukemia, BCR/ABL-positive, not having achieved remission (principal); D64.9 Anemia, unspecified; R53.83 Other fatigue; R42 Dizziness and giddiness
CPT/HCPCS: 36415; 80053; 81170; 81206; 81207; 83615; 84550; 85025; 93005; 99205; 99214; 99215

== ENCOUNTER → 2019-05-08 13:20 | Outpatient (CLI) | payer OTHER, SELFPAY | PROVIDERS: PCP Family Medicine; Visit Provider Internal Medicine Hematology & Oncology | DX: C92.10 Chronic myeloid leukemia, BCR/ABL-positive, not having achieved remission (principal); R53.83 Other fatigue; R42 Dizziness and giddiness; D64.9 Anemia, unspecified | CPT/HCPCS: 93005 ==

== ENCOUNTER → 2023-09-07 10:45 | Outpatient (CLI) | payer OTHER, SELFPAY ==
--- NOTE | 2023-09-07 | DI.MRI.S_ITS ---
BREAST MRI OF BOTH BREASTS: 09/07/2023 CLINICAL: Encapsulated Implant. PROCEDURE: MR BREAST BI WO/W CON INDICATIONS: encapsulated implant TECHNIQUE: The patient was placed prone in a dedicated breast imaging coil. Precontrast axial STIR and 3D FLASH without fat saturation sequences were obtained. Both before and after bolus injection of contrast, sequential 1-minute axial 3D FLASH with fat saturation sequences for 3 time points, with subtraction images and maximum intensity projections (MIP's) generated. Delayed sagittal FLASH images with fat saturation were also obtained. CONTRAST: 20 cc ProHance IV contrast. Computer-aided detection, including computer algorithm analysis of MRI image data for lesion detection and characterization, pharmacokinetic analysis, with further physician review for interpretation, was performed. COMPARISON: [facility], MG, MG SCREENING BILATERAL IMPLANT DIGITAL BREAST TOMOSYNTHESIS, 08/13/2023, 14:01. Outside Film, MG, MG SCREENING BILAT IMPLANTS, 09/19/2021, 14:29. Outside Film, , MG SCREENING BILAT IMPLANTS, 07/24/2020, 10:25. [facility], , MM SCREENING MAMM IMP BI2D, 04/21/2018, 13:13. FINDINGS: Image quality: Excellent. There is mild background parenchymal enhancement. Right breast: Retropectoral silicone implant demonstrates intracapsular rupture. No extracapsular rupture. No mass or suspicious enhancement. Left breast: Retropectoral silicone implant is intact. No intracapsular rupture is identified. No mass or suspicious enhancement. Miscellaneous: No enlarged lymph nodes. IMPRESSION: BENIGN 1. Right breast: Intracapsular implant rupture. No mass or suspicious enhancement. 2. Left breast: Implant is intact. No mass or suspicious enhancement. 3. Lymph nodes: No enlarged lymph nodes. BIRADS 2 A 1 year screening mammogram is recommended. 08/13/2024 COMMENT: The imaging literature indicates that a negative contrast breast MRI examination has a high sensitivity and a moderate specificity for detecting and excluding invasive carcinomas to a detection threshold of 3-5 mm; nonetheless, appropriate clinical and mammographic follow-up are recommended. MRI is not sensitive for detecting DCIS (ductal carcinoma in situ) and may not detect large invasive neoplasms that show only minimal enhancement such as mucinous carcinoma. If there are suspicious calcifications or clinically worrisome palpable masses, then biopsy should still be considered. Invasive neoplasms can be hidden by co-existent and benign enhancement caused by mastitis, hormone therapy effects, radiation therapy, , and recent biopsy or surgery. False positive examinations can occur in a number of circumstances, including breasts that have recently been subject to invasive procedures and those that contain atypical ductal hyperplasia, hormonally stimulated glandular tissue, fat necrosis, or radial scars. Dictated by: Yared Dietz M.D. on 09/07/2023 at 16:12 This exam was interpreted at Station ID: [id number]. Electronically Signed By: Yared Dietz M.D. slc/:09/07/2023 16:38:52 letter sent: Normal Exam ACR BI-RADS Category 2: Benign Finding(s) 3342F
== END ==
PROVIDERS: PCP Physician Assistant; Referring Provider Physician Assistant; Visit Provider Physician Assistant
DX: T85.49XA Other mechanical complication of breast prosthesis and implant, initial encounter (principal)
CPT/HCPCS: 77049; A9579

== ENCOUNTER → 2024-08-15 15:09 | Outpatient (CLI) | payer OTHER, SELFPAY ==
--- NOTE | 2024-08-15 15:10 | DI.MG.S_ITS ---
BILATERAL DIGITAL SCREENING MAMMOGRAM 3D/2D WITH CAD WITH AUGMENTATION: 08/15/2024 CLINICAL: Routine screening. Family history of Breast Cancer. Comparison is made to exams dated: 08/13/2023 mammogram - [facility], 09/19/2021 mammogram, and 07/24/2020 mammogram - [facility]. There are scattered areas of fibroglandular density (category b / 25%-50% glandular tissue). Current study was also evaluated with a Computer Aided Detection (CAD) system. Bilateral breast implants are stable. No significant masses, calcifications, or other findings are seen in either breast. There has been no significant interval change. IMPRESSION: NEGATIVE There is no mammographic evidence of malignancy. A 1 year screening mammogram is recommended. Based on the Tyrer Cuzick model (a risk assessment model) the patient's lifetime risk is 7.3% and her 10 year risk is 3.7%. According to the ACR, ACS, and NCCN guidelines, an annual breast MRI exam along with mammogram is recommended if the patient's lifetime risk is 20% or greater. This exam was interpreted at Station ID: [id number]. NOTE: For mammograms, a report in lay terms will be sent to the patient. Approximately 15% of breast malignancies will not be visualized mammographically. In the management of a palpable breast mass, a negative mammogram must not discourage biopsy of a clinically suspicious lesion. Electronically Signed By: Augustine oden/liang:08/16/2024 07:23:50 letter sent: Normal Exam ACR BI-RADS Category 1: Negative
== END ==
LOC: MAMMO 15:09
PROVIDERS: PCP Physician Assistant; Referring Provider Physician Assistant; Visit Provider Physician Assistant
DX: Z12.31 Encounter for screening mammogram for malignant neoplasm of breast (principal); Z80.3 Family history of malignant neoplasm of breast
CPT/HCPCS: 77063; 77067

== ENCOUNTER → 2025-10-19 17:01 | Outpatient (CLI) | payer MEDICARE, OTHER, SELFPAY ==
--- NOTE | 2025-10-19 17:06 | DI.MG.S_ITS ---
MM screening mammo BI: 10/19/2025. BI-RADS: 2 CLINICAL: 65-year old female for bilateral screening mammogram. Tyrer-Cuzick lifetime risk of 12.0%. Current reported family history of breast cancer: sister, maternal aunt's daughter and paternal aunt. PRIOR EXAMS 08/15/2024, 09/07/2023, 08/13/2023, 09/19/2021. MAMMOGRAPHY TECHNIQUE: 2D and 3D (tomosynthesis) digital mammographic views obtained, with additional images as needed for full coverage. Current study was also evaluated with a Computer Aided Detection (CAD) system. DENSITY B. There are scattered areas of fibroglandular density. MAMMOGRAPHY FINDINGS Bilateral: There are no suspicious masses, calcifications, or other findings in the breast. IMPRESSION: * No evidence of malignancy with benign findings. RECOMMENDATIONS Bilateral * Annual screening mammography. OVERALL ASSESSMENT CATEGORY BI-RADS-2: Benign. The [employer] recommends annual screening mammography beginning at age 40 for women with average risk of breast cancer. ELECTRONICALLY SIGNED: Augustine Smith M.D. on 10/22/2025 at 06:59:09 PM PT Interpreting Station ID: [id number]
== END ==
LOC: MAMMO 17:05
PROVIDERS: PCP Physician Assistant; Referring Provider Physician Assistant; Visit Provider Physician Assistant
DX: Z12.31 Encounter for screening mammogram for malignant neoplasm of breast (principal); Z80.3 Family history of malignant neoplasm of breast
CPT/HCPCS: 77063; 77067